=== PATIENT | female | born 1955 | race Caucasian/White ===

== ENCOUNTER 2017-08-12 10:45 | Outpatient (CLI) | payer OTHER | END 2017-08-12 10:46 | LOC: LAB.WCP 10:45 | PROVIDERS: ATTEND Family Medicine | DX: L30.1 Dyshidrosis [pompholyx] (principal) | CPT/HCPCS: 87070; 87205 ==

== ENCOUNTER 2018-07-16 17:30 | Outpatient (CLI) | payer OTHER | END 2018-07-16 23:59 | LOC: LAB.R 17:30 | PROVIDERS: ATTEND Family Medicine | DX: B35.1 Tinea unguium (principal) | CPT/HCPCS: 81599; 87101; 87220 ==

== ENCOUNTER 2019-05-26 11:10 | Outpatient (CLI) | payer OTHER | END 2019-05-26 23:59 | disposition home or self-care (01) | LOC: LAB.WCP 11:10 | PROVIDERS: ATTEND Family Medicine | DX: L30.1 Dyshidrosis [pompholyx] (principal) | CPT/HCPCS: 87070; 87181; 87205 ==

== ENCOUNTER 2019-08-24 08:00 | Outpatient (CLI) | payer OTHER ==
[2019-08-24 18:38] LABS: BASOPHILS # (AUTO) 0.1 10^3/uL (0.0-0.1); BASOPHILS % (AUTO) 0.9 %; EOSINOPHILS # (AUTO) 0.2 10^3/uL (0.0-0.7); EOSINOPHILS % (AUTO) 2.1 %; HGB - HEMOGLOBIN 12.8 g/dL (12.0-16.0); LYMPHOCYTES # (AUTO) 2.6 10^3/uL (1.5-3.5); LYMPHOCYTES % (AUTO) 27.1 %; MEAN CORPUSCULAR HEMOGLOBIN 29.5 pg (27.0-31.0); MEAN CORPUSCULAR HGB CONC 30.5 g/dL (32.0-36.0); MEAN CORPUSCULAR VOLUME 96.8 fL (81.0-99.0); MEAN PLATELET VOLUME 10.6 fL (7.9-10.8); MONOCYTES # (AUTO) 0.8 10^3/uL (0.0-1.0); MONOCYTES % (AUTO) 8.1 %; NEUTROPHILS # (AUTO) 5.8 10^3/uL (1.5-6.6); PLT - PLATELET COUNT 336 10^3/uL (130-450); RED BLOOD COUNT 4.34 10^6/uL (4.20-5.40); RED CELL DISTRIBUTION WIDTH 15.4 % (12.0-15.0); WHITE BLOOD COUNT 9.6 x10^3/uL (4.8-10.8)
[2019-08-24 18:53] LABS: HB2 TOTAL 13.1 g/dL; HEMOGLOBIN A1C 1.06 g/dL; HEMOGLOBIN A1C % 9.6 % (4.6-6.2)
[2019-08-24 18:59] LABS: ALBUMIN 3.8 g/dL (3.2-5.5); ALBUMIN/GLOBULIN RATIO 1.1 (1.0-2.2); ALKALINE PHOSPHATASE 51 IU/L (42-121); ALT ALANINE AMINOTRANSFERASE 39 IU/L (10-60); AST ASPARTATE AMINOTRANSFERASE 34 IU/L (10-42); BILIRUBIN,TOTAL 1.2 mg/dL (0.2-1.0); BUN - BLOOD UREA NITROGEN 21 mg/dL (6-20); CALCIUM 9.7 mg/dL (8.5-10.3); CARBON DIOXIDE - CO2 29 mmol/L (21-32); CHLORIDE 99 mmol/L (101-111); CHOL/HDL RATIO 8.1 (<4.4); CHOLESTEROL 268 mg/dL; CREATININE 1.6 mg/dL (0.4-1.0); GFR - MDRD 33 (>89); GLUCOSE 118 mg/dL (70-100); HDL CHOLESTEROL 33 mg/dL; SODIUM 138 mmol/L (135-145); TOTAL PROTEIN 7.4 g/dL (6.7-8.2)
[2019-08-24 19:29] LABS: LDL CHOLESTEROL,DIRECT 164 mg/dL
== END 2019-08-24 23:59 | disposition home or self-care (01) ==
LOC: LAB.WCP 08:00
PROVIDERS: ATTEND Physician Assistant Medical
DX: I10 Essential (primary) hypertension (principal); E78.2 Mixed hyperlipidemia; E11.9 Type 2 diabetes mellitus without complications
CPT/HCPCS: 36415; 80053; 80061; 83036; 83721; 85025

== ENCOUNTER 2019-11-22 10:57 | Outpatient (CLI) | payer OTHER ==
[2019-11-22 18:40] LABS: ALBUMIN/GLOBULIN RATIO 1.1 (1.0-2.2); BILIRUBIN,TOTAL 0.8 mg/dL (0.2-1.0); CALCIUM 9.6 mg/dL (8.5-10.3); CREATININE 1.2 mg/dL (0.4-1.0); TOTAL PROTEIN 7.7 g/dL (6.7-8.2)
[2019-11-22 18:58] LABS: HB2 TOTAL 14.1 g/dL; HEMOGLOBIN A1C 0.98 g/dL; HEMOGLOBIN A1C % 8.5 % (4.6-6.2)
== END 2019-11-22 23:59 | disposition home or self-care (01) ==
LOC: LAB.WCP 10:57
PROVIDERS: ATTEND Physician Assistant Medical
DX: E11.9 Type 2 diabetes mellitus without complications (principal)
CPT/HCPCS: 36415; 80053; 83036

== ENCOUNTER 2020-07-12 07:00 | Outpatient (CLI) | payer OTHER | END 2020-07-12 23:59 | disposition home or self-care (01) | LOC: LAB.R 07:00 | PROVIDERS: ATTEND Physician Assistant Medical | DX: L03.319 Cellulitis of trunk, unspecified (principal) | CPT/HCPCS: 87070; 87181; 87205 ==

== ENCOUNTER 2020-07-28 09:09 | Outpatient (CLI) | payer OTHER | END 2020-07-28 09:10 | disposition home or self-care (01) | LOC: RT 09:09 | PROVIDERS: ATTEND Physician Assistant Medical | DX: J44.9 Chronic obstructive pulmonary disease, unspecified (principal) | CPT/HCPCS: 94060; 94729 ==

== ENCOUNTER 2020-09-18 08:00 | Outpatient (CLI) | payer OTHER ==
[2020-09-18 12:08] LABS: HGB - HEMOGLOBIN 13.6 g/dL (12.0-16.0); MEAN CORPUSCULAR HEMOGLOBIN 28.9 pg (27.0-31.0); MEAN CORPUSCULAR HGB CONC 30.9 g/dL (32.0-36.0); MEAN CORPUSCULAR VOLUME 93.6 fL (81.0-99.0); MEAN PLATELET VOLUME 10.7 fL (7.9-10.8); RED BLOOD COUNT 4.7 10^6/uL (4.20-5.40); RED CELL DISTRIBUTION WIDTH 14.7 % (12.0-15.0); WHITE BLOOD COUNT 6.1 x10^3/uL (4.8-10.8)
[2020-09-18 13:31] LABS: ALBUMIN 3.8 g/dL (3.2-5.5); ALBUMIN/GLOBULIN RATIO 1.1 (1.0-2.2); ALKALINE PHOSPHATASE 54 IU/L (42-121); ALT ALANINE AMINOTRANSFERASE 29 IU/L (10-60); AST ASPARTATE AMINOTRANSFERASE 29 IU/L (10-42); BILIRUBIN,TOTAL 0.9 mg/dL (0.2-1.0); BUN - BLOOD UREA NITROGEN 17 mg/dL (6-20); CALCIUM 9.8 mg/dL (8.5-10.3); CARBON DIOXIDE - CO2 28 mmol/L (21-32); CHLORIDE 101 mmol/L (101-111); CHOLESTEROL 293 mg/dL; CREATININE 1.3 mg/dL (0.4-1.0); GLUCOSE 122 mg/dL (70-100); HDL CHOLESTEROL 42 mg/dL; SODIUM 139 mmol/L (135-145); TOTAL PROTEIN 7.4 g/dL (6.7-8.2)
[2020-09-18 13:50] LABS: PROTEIN/CREATININE RATIO,URINE 1.1 (<=0.2)
[2020-09-18 13:58] LABS: LDL CHOLESTEROL,DIRECT 165 mg/dL; LDLD/HDL RATIO 3.9 (<4.4)
[2020-09-18 14:09] LABS: HEMOGLOBIN A1c% 6.6 % (4.27-6.07)
== END 2020-09-18 23:59 | disposition home or self-care (01) ==
LOC: LAB.WCP 08:00
PROVIDERS: ATTEND Physician Assistant Medical
DX: D70.9 Neutropenia, unspecified (principal); E11.9 Type 2 diabetes mellitus without complications; D63.1 Anemia in chronic kidney disease; R80.9 Proteinuria, unspecified
CPT/HCPCS: 36415; 80053; 80061; 82570; 83036; 83721; 84156; 85027

== ENCOUNTER 2020-10-13 09:12 | Outpatient (CLI) | payer OTHER ==
--- NOTE | 2020-10-13 16:05 | Ultrasound Report ---
PROCEDURE: Retroperitoneal INDICATIONS: KIDNEY DYSFUNCTION TECHNIQUE: Real-time scanning was performed of the retroperitoneal organs, with image documentation. COMPARISON: None. FINDINGS: Kidneys: Kidneys are atrophic, right greater than left. Right kidney measures 6.6 cm long; left kidn ey measures 10.0 cm long. Right renal cortical thickness is 0.6 cm; left renal cortical thickness is 1.3 cm. No solid masses, hydronephrosis, or nephrolithiasis. Bladder: Prevoid volume 47 cc. Postvoid residual 0 cc. Ureteral jets are identified bilaterally. Ther e is an overall appearance of bladder wall thickening. IMPRESSION: 1. Bilateral renal atrophy, right greater than left. 2. No obstruction. 3. Thickened appearance of the bladder wall, which can be seen with incomplete distention. Recommend correlation to cystitis as a can have a similar imaging appearance. Reviewed by: Krysten Vargas MD on 10/13/2020 4:03 PM PST Approved by: Krysten Vargas MD on 10/13/2020 4:03 PM PST Station ID: [id number]
== END 2020-10-13 09:13 | disposition home or self-care (01) ==
LOC: DI 09:12
PROVIDERS: ATTEND Internal Medicine Nephrology
DX: N26.1 Atrophy of kidney (terminal) (principal); R93.41 Abnormal radiologic findings on diagnostic imaging of renal pelvis, ureter, or bladder

== ENCOUNTER 2021-02-08 09:17 | Outpatient (CLI) | payer OTHER ==
--- NOTE | 2021-02-08 12:52 | Ultrasound Report ---
PROCEDURE: Ankle Brachial Index INDICATIONS: PERIPHERAL VASCULAR DISEASE, POST MENOPAUSAL TECHNIQUE: Ankle-brachial indices were obtained bilaterally and recorded. COMPARISONS: None. FINDINGS: Right ankle brachial index (KECIA): 0.63 Left ankle brachial index (KECIA): 0.48 Healing potential: Ankle pressures >55 mm Hg in non-diabetics and >80 mm Hg in diabetics are likely to achieve primary h ealing of ischemic foot ulcers. Toe pressures >30 mm Hg are likely to achieve primary healing of ischemic foot ulcers, toe or transme tatarsal amputations. IMPRESSION: Significantly diminished bilateral ankle brachial indices. Reviewed by: Nabeel Amaya MD on 02/08/2021 12:51 PM PDT Approved by: Nabeel Amaya MD on 02/08/2021 12:51 PM PDT Station ID: [id number]
--- NOTE | 2021-02-08 16:48 | DEXA Report ---
PROCEDURE: Dexa Spine and/or Hip INDICATIONS: PERIPHERAL VASCULAR DISEASE, POST MENOPAUSAL TECHNIQUE: Dual energy x-ray absorptiometry (DXA) was performed on a ESBATech System. Regions measur ed are the AP Spine, femoral neck, and if needed forearm. COMPARISON: None. FINDINGS: Lumbar Spine: Bone Mineral Density 1.351 g/cm/cm,T score 1.4, normal Left Hip: Bone Mineral Density 1.061 g/cm/cm,T score 0.4, normal Left Femoral Neck: Bone Mineral Density 0.794 g/cm/cm, T score -1.8, osteopenia (T score greater or equal to -1.0: NORMAL) (T score from -1.1 to -2.4: OSTEOPENIA) (T score less than or equal to -2.5 to: OSTEOPOROSIS) Impression: Normal bone mineral density at the lumbosacral spine and left hip overall but there is mi ld osteopenia at the left femoral neck. Patients with diagnosis of osteoporosis or osteopenia should have regular bone mineral density assess ment. For those eligible for Medicare, routine testing is allowed once every 2 years. Testing frequ ency can be increased for patients who have rapidly progressing disease or for those who are receivin g medical therapy to restore bone mass. Reviewed by: Torres Mack MD on 02/08/2021 4:47 PM PDT Approved by: Torres Mack MD on 02/08/2021 4:47 PM PDT Station ID: [id number]
== END 2021-02-08 09:18 | disposition home or self-care (01) ==
LOC: DI 09:17
PROVIDERS: ATTEND Physician Assistant Medical
DX: I73.9 Peripheral vascular disease, unspecified (principal); M85.88 Other specified disorders of bone density and structure, other site; Z78.0 Asymptomatic menopausal state
CPT/HCPCS: 93922

== ENCOUNTER 2021-06-07 07:43 | Outpatient (CLI) | payer OTHER ==
[2021-06-07 12:40] LABS: ALBUMIN 3.8 g/dL (3.2-5.5); ALKALINE PHOSPHATASE 64 IU/L (42-121); ALT ALANINE AMINOTRANSFERASE 39 IU/L (10-60); AST ASPARTATE AMINOTRANSFERASE 29 IU/L (10-42); BILIRUBIN,TOTAL 0.7 mg/dL (0.2-1.0); BUN - BLOOD UREA NITROGEN 24 mg/dL (6-20); CALCIUM 9.9 mg/dL (8.5-10.3); CARBON DIOXIDE - CO2 31 mmol/L (21-32); CHLORIDE 99 mmol/L (101-111); CHOL/HDL RATIO 7.3 (<4.4); CHOLESTEROL 254 mg/dL; CREATININE 1.4 mg/dL (0.4-1.0); GFR - MDRD 38 (>89); GLUCOSE 239 mg/dL (70-100); HDL CHOLESTEROL 35 mg/dL; LDL CHOLESTEROL,CALCULATED 142 mg/dL; LDL/HDL RATIO 4.1 (<4.4); POTASSIUM 4.5 mmol/L (3.5-5.0); SODIUM 141 mmol/L (135-145); TOTAL PROTEIN 7.6 g/dL (6.7-8.2); TRIGLYCERIDES 385 mg/dL; VLDL CHOLESTEROL 77 mg/dL
[2021-06-07 12:41] LABS: THYROID STIMULATING HORMONE 3.65 uIU/mL (0.34-5.60)
[2021-06-07 13:24] LABS: ESTIMATED AVERAGE GLUCOSE 180 mg/dL (70-100); HEMOGLOBIN A1c% 7.9 % (4.27-6.07)
== END 2021-06-07 23:59 | disposition home or self-care (01) ==
LOC: LAB.WCP 07:43
PROVIDERS: ATTEND Physician Assistant Medical
DX: E11.9 Type 2 diabetes mellitus without complications (principal)
CPT/HCPCS: 36415; 80053; 80061; 83036; 83721; 84443

== ENCOUNTER 2021-09-08 10:29 | Outpatient (CLI) | payer OTHER | END 2021-09-08 10:30 | disposition critical access hospital (66) | LOC: EMS 10:29 | DX: R51.9 Headache, unspecified (principal); H53.8 Other visual disturbances | CPT/HCPCS: A0425; A0427 ==

== ENCOUNTER 2021-09-08 10:38 | Inpatient (IN) | payer OTHER ==
[2021-09-08] MEDS ORDERED: SODIUM CHLORIDE 0.9% 1,000 ML IV STA (10:59)
--- NOTE | 2021-09-08 11:01 | ED Physician Documentation ---
PD HPI FOCAL NEURO - Stated complaint Stated Complaint: VISION CHANGE/CHARLES - Chief complaint Chief Complaint: Neuro - History obtained from History obtained from: Patient - History of Present Illness Timing - onset: Enter time (1600), Yesterday Timing - duration: Days (1) Timing - details: Gradual onset, Still present Severity of deficit: Moderate Weakness: No: Face, Arm, Hand, Leg, Foot, Right, Left, Other Numbness: No: Face, Arm, Hand, Leg, Foot, Right, Left, Other Associated symptoms: Headache Contributing factors: positive: Other (diabetes) Baseline status: positive: A&OX3, ambulatory, indep Similar symptoms before: Has not had sx before Recently seen: Not recently seen - Additional information Additional information: 66-year-old diabetic female with a history of hypertension was in her home yesterday when she began to experience some visual changes to the right thigh. She has a visual deficit of the peripheral vision on the right eye especially to the lateral aspect. She has not had the symptoms previously. She checked her blood pressure and it was elevated with a systolic up to 199. She has a bit of a headache associated with this. 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 Today she is taken some aspirin and she has called 911. Review of Systems Constitutional: denies: Fever Eyes: reports: Loss of vision, Decreased vision. denies: Photophobia, Discharge, Irritation Ears: denies: Ear pain Nose: denies: Rhinorrhea / runny nose, Congestion Throat: denies: Sore throat Cardiac: denies: Chest pain / pressure, Palpitations Respiratory: denies: Dyspnea, Cough GI: denies: Abdominal Pain, Abdominal Swelling, Vomiting : denies: Dysuria, Frequency Skin: denies: Rash Musculoskeletal: denies: Neck pain, Back pain, Extremity pain Neurologic: reports: Headache. denies: Generalized weakness, Focal weakness, Numbness, Difficulty speaking, Near syncope, Syncope, Seizure, Confused, Altered mental status, Head injury, LOC PD PAST MEDICAL HISTORY - Past Medical History Cardiovascular: Hypertension, High cholesterol Respiratory: COPD, Shortness of breath Endocrine/Autoimmune: Type 2 diabetes Derm: Other - Past Surgical History General: Other Cardiovascular: Fempop bypass - Present Medications Home Medications: Ambulatory Orders Medication Instructions Recorded Confirmed Losartan [Cozaar] 100 mg PO DAILY 04/19/14 09/08/21 Felodipine [Felodipine ER] 10 mg PO DAILY 10/19/19 09/08/21 Fexofenadine HCl [Jessica Allergy] 180 mg PO DAILY 10/19/19 09/08/21 Insulin Lispro [Humalog Kwikpen 62 - 66 unit SUBQ TID 10/19/19 09/08/21 U-100] Insulin NPH Human Isophane 34 - 42 unit SUBQ BID 10/19/19 09/08/21 [Humulin N] Atorvastatin [Lipitor] 10 mg PO QPM 09/08/21 09/08/21 Hydralazine HCl 50 mg PO QID 09/08/21 09/08/21 carvediloL [Coreg] 12.5 mg PO BID 09/08/21 09/08/21 hydroCHLOROthiazide [Hydrodiuril] 12.5 mg PO DAILY 09/08/21 09/08/21 - Allergies Allergies/Adverse Reactions: Allergies Allergy/AdvReac Type Severity Reaction Status Date / Time lisinopril Allergy Unknown Verified 09/08/21 10:51 - Social History Smoking Status: Former smoker PD ED PE NORMAL - Vitals Vital signs reviewed: Yes (hypertensive systolic ) - General General: Alert and oriented X 3, No acute distress, Well developed/nourished - HEENT HEENT: Atraumatic, PERRL, EOMI - Neck Neck: Supple, no meningeal sign, No bony TTP - Cardiac Cardiac: RRR, No murmur - Respiratory Respiratory: No respiratory distress, Clear bilaterally - Abdomen Abdomen: Normal bowel sounds, Soft, Non tender, Non distended, No organomegaly - Back Back: No CVA TTP, No spinal TTP - Derm Derm: Normal color, Warm and dry, No rash - Extremities Extremities: No deformity, No edema - Neuro Neuro: Alert and oriented X 3, No motor deficit, No sensory deficit, Normal spee ch, Other (visual field on right side has peripheral deficit. ) Eye Opening: Spontaneous Motor: Obeys Commands Verbal: Oriented GCS Score: 15 - Psych Psych: Normal mood, Normal affect NIHSS - Time Time: 19:45 - Level of Consciousness Level of consciousness: (0) Alert, Keenly responsive LOC Questions: (0) Answers both Q's correct LOC Commands: (0) Performs both correctly - Gaze Best Gaze: (0) Normal - Visual Visual: (1) Partial hemianopia - Facial Palsy Facial Palsy: (0) Normal, symmetrical movement - Motor Arms (both separate) Motor Arm (right): (0) No drift Motor Arm (left): (0) No drift - Motor Legs (both separate) Motor Leg (right): (0) No drift Motor Leg (left): (0) No drift - Limb Ataxia Limb Ataxia: (0) Absent - Sensory Sensory: (0) Normal - Best Language Best Language: (0) No aphasia - Dysarthria Dysarthria: (0) Normal - Extinction and Inattention (formally neg Extinction and inattention: (0) No abnormality - Total Score/Results Total Score/Result: 1 Results - Vitals Vitals: Vital Signs - 24 hr 09/08/21 09/08/21 09/08/21 10:40 10:51 11:22 Temperature 36.5 C Heart Rate 86 85 86 Respiratory 19 14 19 Rate Blood Pressure 172/67 H 172/67 H 196/65 H O2 Saturation 95 94 97 09/08/21 09/08/21 09/08/21 11:30 12:00 12:30 Temperature Heart Rate 85 83 85 Respiratory 16 16 16 Rate Blood Pressure 196/65 H 150/125 H O2 Saturation 95 95 95 09/08/21 13:38 Temperature Heart Rate 91 Respiratory 17 Rate Blood Pressure 183/81 H O2 Saturation 96 Oxygen O2 Source Room air - EKG (time done) 1102 Rate: Rate (enter#) (80) Ischemia: Q waves (inferior ) Compare to prior EKG: Old EKG unavailable Computer interpretation: Agree with computer - Labs Labs: Laboratory Tests 09/08/21 09/08/21 09/08/21 11:29 11:29 11:29 WBC 6.5 RBC 4.96 Hgb 14.7 Hct 45.8 MCV 92.3 MCH 29.6 MCHC 32.1 RDW 13.0 Plt Count 259 MPV 10.2 Neut # (Auto) 4.3 Lymph # (Auto) 1.4 L [place] # (Auto) 0.5 Eos # (Auto) 0.2 Baso # (Auto) 0.1 Absolute Nucleated RBC 0.00 Nucleated RBC % 0.0 Sodium 137 Potassium 4.1 Chloride 97 L Carbon Dioxide 30 Anion Gap 10.0 BUN 21 H Creatinine 1.4 H Estimated GFR (MDRD) 38 L Glucose 110 H Estimat Average Glucose Hemoglobin A1c % Lactic Acid 1.5 Calcium 9.2 Total Bilirubin 1.0 AST 27 ALT 32 Alkaline Phosphatase 52 Troponin I High Sens Total Protein 7.6 Albumin 3.8 Globulin 3.8 Albumin/Globulin Ratio 1.0 Triglycerides Cholesterol LDL Cholesterol, Calc VLDL Cholesterol HDL Cholesterol LDL/HDL Ratio Cholesterol/HDL Ratio Lipase 41 Urine Color Urine Clarity Urine pH Ur Specific [place] Urine Protein Urine Glucose (UA) Urine Ketones Urine Occult Blood Urine Nitrite Urine Bilirubin Urine Urobilinogen Ur Leukocyte Esterase Urine RBC Urine WBC Ur Squamous Epith Cells Urine Bacteria Ur Microscopic Review Urine Culture Comments 09/08/21 09/08/21 09/08/21 11:29 11:29 11:29 WBC RBC Hgb Hct MCV MCH MCHC RDW Plt Count MPV Neut # (Auto) Lymph # (Auto) [place] # (Auto) Eos # (Auto) Baso # (Auto) Absolute Nucleated RBC Nucleated RBC % Sodium Potassium Chloride Carbon Dioxide Anion Gap BUN Creatinine Estimated GFR (MDRD) Glucose Estimat Average Glucose 183 H Hemoglobin A1c % 8.0 H Lactic Acid Calcium Total Bilirubin AST ALT Alkaline Phosphatase Troponin I High Sens 14.5 Total Protein Albumin Globulin Albumin/Globulin Ratio Triglycerides 326 H Cholesterol 243 H LDL Cholesterol, Calc 147 H VLDL Cholesterol 65 HDL Cholesterol 31 L LDL/HDL Ratio 4.7 Cholesterol/HDL Ratio 7.8 Lipase Urine Color Urine Clarity Urine pH Ur Specific [place] Urine Protein Urine Glucose (UA) Urine Ketones Urine Occult Blood Urine Nitrite Urine Bilirubin Urine Urobilinogen Ur Leukocyte Esterase Urine RBC Urine WBC Ur Squamous Epith Cells Urine Bacteria Ur Microscopic Review Urine Culture Comments 09/08/21 11:40 WBC RBC Hgb Hct MCV MCH MCHC RDW Plt Count MPV Neut # (Auto) Lymph # (Auto) [place] # (Auto) Eos # (Auto) Baso # (Auto) Absolute Nucleated RBC Nucleated RBC % Sodium Potassium Chloride Carbon Dioxide Anion Gap BUN Creatinine Estimated GFR (MDRD) Glucose Estimat Average Glucose Hemoglobin A1c % Lactic Acid Calcium Total Bilirubin AST ALT Alkaline Phosphatase Troponin I High Sens Total Protein Albumin Globulin Albumin/Globulin Ratio Triglycerides Cholesterol LDL Cholesterol, Calc VLDL Cholesterol HDL Cholesterol LDL/HDL Ratio Cholesterol/HDL Ratio Lipase Urine Color YELLOW Urine Clarity CLEAR Urine pH 7.0 Ur Specific [place] 1.020 Urine Protein 100 H Urine Glucose (UA) NEGATIVE Urine Ketones NEGATIVE Urine Occult Blood TRACE-INTA Urine Nitrite NEGATIVE Urine Bilirubin NEGATIVE Urine Urobilinogen 0.2 (NORMAL) Ur Leukocyte Esterase NEGATIVE Urine RBC 0-5 Urine WBC 0-3 Ur Squamous Epith Cells RARE Squamous Urine Bacteria Few Ur Microscopic Review INDICATED Urine Culture Comments NOT INDICATED - Rads (name of study) CT head Radiology: Prelim report reviewed (Impression: Left occipital lobe hypodensity measuring 4.8 x 2.1 x 2.8 cm with no associated mass-effect or midline shift. Differential diagnosis includes an infiltrative mass versus subacute infarct in the STENCILING MACHINE TENDER distribution. Recommend CT of the head with contrast and CT angio of the head and neck), EMP read indepedently, See rad report CTA head Radiology: Prelim report reviewed (Impression: 4.8 x 2.1 x 2.6 left occipital lobe infarction. Focal calcification and stenosis of the prethree segment of the left STENCILING MACHINE TENDER likely a cause of left STENCILING MACHINE TENDER distribution infarct. 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 ), Final report received (Calcifications in the intracranial internal carotid arteries with no significant stenosis, otherwise normal anterior circulation), EMP read indepedently, See rad report CTA neck Radiology: Prelim report reviewed (Impression: 1. Focal calcification and stenosis of the P3 segment of the left STENCILING MACHINE TENDER, likely the cause of left STENCILING MACHINE TENDER distribution infarct. Post endarterectomy changes of the right carotid artery with no stenosis. severe atherosclerotic calcifications of the left carotid bulb causing 70% stenosis and th) Procedures - IVC sono (time) 1050 Bedside IVC sono: IVC measures (cm) (0.68), Dehydration (est 2-3 liter deficit) PD MEDICAL DECISION MAKING - ED course Complexity details: reviewed old records, reviewed results, re-evaluated patient, considered differential, d/w patient, d/w sales operations consultant ([facility] neurology at [facility] recommends admission here with plavix load and asa. Vertebral artery stenosis is not fixable will need medical management. No acute intervention to left carotid. Recomends f/u for intervention. ) ED course: 66-year-old female diabetic has had a right visual field cut and she has a left STENCILING MACHINE TENDER stroke on her CT scan that looks to be completed. She has prior history of vascular disease she has had a right carotid done about 2 years ago she has left carotid disease that does make grade for intervention. The neurologist recommends consultation at a later date for intervention with the left carotid artery as it is not likely involved in today's event. No intervention for the vertebral arteries is available. She will need medical management. Today she is found to be significantly dehydrated on interrogation the inferior vena cava she is administered saline. Dr Irwin is consulted in the case and graciously agrees to care for the patient in the hospital. Departure - Departure Disposition: 68 [facility] DC/Xfer Clinical Impression: Dehydration determined by examination Cerebrovascular accident (CVA) Qualifiers: CVA mechanism: stenosis Precerebral and cerebral artery: posterior cerebral artery Laterality of affected vessel: right Qualified Code(s): I63.531 - Cerebral infarction due to unspecified occlusion or stenosis of right posterior cerebral artery Condition: Stable Discharge Date/Time: 09/08/21 14:44
--- NOTE | 2021-09-08 11:32 | CT Report ---
PROCEDURE: Head W/O Stroke Protocol INDICATIONS: peripheral vision loss to right eye TECHNIQUE: Noncontrast 4.5 mm thick angled axial sections acquired from the foramen magnum to the vertex, with c oronal reformats. For radiation dose reduction, the following was used: automated exposure control, adjustment of mA and/or kV according to patient size. COMPARISON: FINDINGS: Image quality: Excellent. CSF spaces: Basal cisterns are patent. No extra-axial fluid collections. Ventricles are normal in size and shape. Brain: No midline shift. No intracranial masses or hemorrhage. There is a well-circumscribed hypod ensity in the left occipital lobe measuring 4.8 x 2.1 x 2.6 cm. There is no mass effect or midline sh ift. Skull and face: Calvarium and visualized facial bones are intact, without suspicious lesions. Sinuses: Visualized sinuses and mastoids are clear. IMPRESSION: Left occipital lobe hypodensity measuring 4.8 x 2.1 x 2.8 cm with no associated mass eff ect or midline shift. Differential diagnosis includes an infiltrative mass versus subacute infarct in a EKG MONITOR distribution. Recommend CT of the head with contrast and CT angiogram of the head and neck. Fi ndings were discussed with Dr. Rosales at 10:28 AM on 09/08/2021. This study fulfills neurological imaging criteria for inclusion or exclusion of acute stroke therapie s based on available published neurological imaging guidelines. Reviewed by: Zander Quick on 09/08/2021 10:31 AM BAL Approved by: Zander Quick on 09/08/2021 10:31 AM [facility] Station ID: [id number]
[2021-09-08 11:35] LABS: BASOPHILS # (AUTO) 0.1 10^3/uL (0.0-0.1); BASOPHILS % (AUTO) 0.8 %; EOSINOPHILS # (AUTO) 0.2 10^3/uL (0.0-0.7); EOSINOPHILS % (AUTO) 2.8 %; HCT - HEMATOCRIT 45.8 % (37.0-47.0); HGB - HEMOGLOBIN 14.7 g/dL (12.0-16.0); LYMPHOCYTES # (AUTO) 1.4 10^3/uL (1.5-3.5); LYMPHOCYTES % (AUTO) 22.1 %; MEAN CORPUSCULAR HEMOGLOBIN 29.6 pg (27.0-31.0); MEAN CORPUSCULAR HGB CONC 32.1 g/dL (32.0-36.0); MEAN CORPUSCULAR VOLUME 92.3 fL (81.0-99.0); MEAN PLATELET VOLUME 10.2 fL (7.9-10.8); MONOCYTES # (AUTO) 0.5 10^3/uL (0.0-1.0); MONOCYTES % (AUTO) 7.8 %; NEUTROPHILS # (AUTO) 4.3 10^3/uL (1.5-6.6); NEUTROPHILS % (AUTO) 66.3 %; PLT - PLATELET COUNT 259 10^3/uL (130-450); RED BLOOD COUNT 4.96 10^6/uL (4.20-5.40); WHITE BLOOD COUNT 6.5 x10^3/uL (4.8-10.8)
[2021-09-08 11:50] LABS: ALBUMIN 3.8 g/dL (3.2-5.5); CALCIUM 9.2 mg/dL (8.5-10.3); CREATININE 1.4 mg/dL (0.4-1.0); POTASSIUM 4.1 mmol/L (3.5-5.0); TOTAL PROTEIN 7.6 g/dL (6.7-8.2)
[2021-09-08] MEDS ORDERED: IOPAMIDOL-300 100 ML VIAL ONE (11:58)
[2021-09-08 12:12] LABS: BILIRUBIN,URINE NEGATIVE (NEGATIVE); GLUCOSE, URINE (UA) NEGATIVE (NEGATIVE); KETONES,URINE (UA) NEGATIVE (NEGATIVE); LEUKOCYTE ESTERASE, URINE NEGATIVE (NEGATIVE); NITRITE,URINE NEGATIVE (NEGATIVE); OCCULT BLOOD,URINE TRACE-INTA (NEGATIVE); PROTEIN,URINE 100 mg/dL (NEGATIVE); UROBILINOGEN,URINE 0.2 (NORMAL) E.U./dL (NORMAL)
[2021-09-08 12:14] LABS: CLARITY,URINE CLEAR (CLEAR)
[2021-09-08 12:23] LABS: BACTERIA,URINE Few /HPF (None Seen); RBC,URINE 0-5 /HPF (0-5); SQUAMOUS EPITHELIAL CELL,UR RARE Squamous (<= Few); WBC,URINE 0-3 /HPF (0-5)
[2021-09-08] MEDS ORDERED: IOPAMIDOL-300 100 ML VIAL IVP ONE (12:23)
--- NOTE | 2021-09-08 12:54 | CT Report ---
PROCEDURE: ANGIO NECK W INDICATIONS: right peripheral visual field loss CONTRAST: IV CONTRAST: Isovue 300 ml: 80 PO CONTRAST: *NO PO CONTRAST TECHNIQUE: After the administration of intravenous contrast, 1.5 mm axial sections acquired from the aortic arch to the [place] of [place]. Coronal 3-D maximum intensity projection (MIP) and/or volume rendering ref ormats were then performed. For radiation dose reduction, the following was used: automated exposur e control, adjustment of mA and/or kV according to patient size. COMPARISON: None FINDINGS: Image quality: Excellent. Carotid system: The great vessels demonstrate a conventional anatomy as they arise from the aortic a [facility]. Postoperative changes of right carotid endarterectomy with no stenosis. The left proximal ICA a t the bulb has calcified plaque causing 70% stenosis. The mid left ICA also has atherosclerotic calci fications causing 70% stenosis. The common carotid arteries demonstrate normal calibers and courses. The bifurcation regions appear normal bilaterally. The internal carotid arteries demonstrate normal caliber and course. Posterior circulation: The origin of the right vertebral artery is heavily calcified causing signific ant stenosis. The remaining vertebral artery in the neck is patent. The right vertebral artery is dom inant. The left vertebral artery is nondominant and miniscule and is not visualized until the upper c ervical spine where there is normal flow which does not reach the basilar artery confluence. There is a focal calcification and stenosis in the P3 segment of the left BREAKER TENDER, likely the cause of left BREAKER TENDER d istribution infarct. Soft tissues: Visualized neck soft tissues demonstrate no suspicious abnormalities. The thyroid is normal in size and there are no incidental findings. The left maxillary sinus has mucosal retention c ysts. Bones: No suspicious bony lesions. Visualized cervical spine appears normally aligned. IMPRESSION: 1. Focal calcification and stenosis in the P3 segment of the left BREAKER TENDER, likely the cause of left BREAKER TENDER d istribution infarct. 2. Postendarterectomy changes of the right carotid artery with no stenosis. 3. Severe atherosclerotic calcifications of the left carotid bulb causing 70% stenosis and the mid le ft ICA causing 70% stenosis. 4. Severe stenosis at the origin of the right vertebral artery. 5. Dominant right vertebral artery with a miniscule left vertebral artery which does not provide sign ificant flow to the basilar artery. Reviewed by: Zander Quick on 09/08/2021 11:52 AM [facility] Approved by: Zander Quick on 09/08/2021 11:52 AM [facility] Station ID: [id number]
[2021-09-08] MEDS ORDERED: CLOPIDOGREL 300 MG TABLET PO STA (12:57)
--- NOTE | 2021-09-08 13:01 | CT Report ---
PROCEDURE: ANGIO HEAD W/WO INDICATIONS: R peripheral visual field loss CONTRAST: IV CONTRAST: Isovue 300 ml: 80 PO CONTRAST: *NO PO CONTRAST TECHNIQUE: Precontrast 4.5 mm thick angled axial sections acquired from the foramen magnum to the vertex. Afte r the administration of intravenous contrast, 1 mm thick sections acquired through the [place] of [place] is. Postcontrast 4.5 mm thick sections then re-acquired from the foramen magnum to the vertex. 3-di mensional rdkrozj-wrbtcjxni-qbtcaysckr (MIP) and/or volume rendering reformats were acquired of the c entral intracranial vasculature. For radiation dose reduction, the following was used: automated ex posure control, adjustment of mA and/or kV according to patient size. COMPARISON: CT head today FINDINGS: Image quality: Excellent. Anterior circulation: The intracranial internal carotid arteries have atherosclerotic calcifications with no significant stenosis. The flow within the paired anterior cerebral arteries is normal and sym metric. The flow within the middle cerebral arteries is normal and symmetric. The anterior communic ating artery is seen. No aneurysms are seen. Posterior circulation: The right vertebral artery is dominant. The left vertebral artery is nondomin ant and miniscule and is not visualized until the upper cervical spine where there is normal flow whi ch does not reach the basilar artery confluence. There is a focal calcification and stenosis in the P 3 segment of the left CONSTRUCTION IRONWORKER, likely the cause of left CONSTRUCTION IRONWORKER distribution infarct. CSF spaces: Ventricles are normal in size and shape. Basal cisterns are patent. No extra-axial flu id collections. Brain: The 4.8 x 2.1 x 2.6 cm left occipital lobe hypodensity seen on noncontrast CT demonstrates no postcontrast enhancement. There is no associated mass effect. No midline shift. No intracranial ble eds or masses. Kam-white matter interface appears intact. Skull and face: Calvarium and facial bones appear intact, without suspicious lesions. Sinuses: Visualized sinuses and mastoids are clear. IMPRESSION: 1. 4.8 x 2.1 x 2.6 cm left occipital lobe infarction. 2. Focal calcification and stenosis in the P3 segment of the left CONSTRUCTION IRONWORKER likely the cause of left CONSTRUCTION IRONWORKER di stribution infarct. 3. No significant flow in the left vertebral artery likely due to congenital dominance of the right v ertebral artery. 4. Calcifications in the intracranial internal carotid arteries with no significant stenosis, otherwi se normal anterior circulation. Reviewed by: Zander Quick on 09/08/2021 11:59 AM BAL Approved by: Zander Quick on 09/08/2021 11:59 AM IN Station ID: [id number]
[2021-09-08] MEDS ORDERED: SODIUM CHLORIDE FLUSH 0.9% 10 ML SYRINGE IVP PRN (13:50)
[2021-09-08] MEDS ORDERED: ONDANSETRON ODT 4 MG TABLET TL PRN (13:52)
--- NOTE | 2021-09-08 13:56 | HISTORY & PHYSICAL EXAMINATION ---
Chief Complaint - Chief Complaint Chief Complaint: Right sided vision loss History of Present Illness - Admitted From Admitted From:: Home - History Obtained From Records Reviewed: Yes History obtained from: Patient, ER Physician, EMR - History of Present Illness HPI Comment/Other: This is a 66-year-old female with a past medical history significant for stroke, hypertension, insulin-dependent diabetes mellitus, COPD who presents today complaining of right-sided vision loss. She states her symptoms began yesterday and she could not see from the outside portion of her right eye. She did not seek medical attention because she had no other deficits or headache. She states when she had her prior stroke at the age of 32 she had a headache that was so severe and because she did not have at this time, she did not think much of it. She is speaking with her mother on the phone today when her mother convinced her to go to the emergency department for evaluation. The patient still has right-sided deficits over the lateral aspect of the eye. She reports a little headache today. Denies any focal deficits or sensation loss. She stopped taking aspirin a few years ago as she got busy taking care of her . She did take 325 mg full dose aspirin today before coming to the emergency department. She denies any fevers, chills, chest pain, dyspnea In the emergency department, she is noted to be hypertensive with systolic in the 180s. Imaging revealed a 4.8 x 2.1 x 2.6 cm left occipital lobe infarction. There was also significant stenosis of the left SCHOOL SECRETARY. She also had 70% stenosis of the left ICA. Neurology was contacted who recommended medical management with aspirin and Plavix for 21 days and that there was no intervention to be offered to the patient. Given the above findings, medicine was consulted for admission. History - Past Medical History Cardiovascular: reports: Hypertension, High cholesterol Respiratory: reports: COPD, Shortness of breath Endocrine/Autoimmune: reports: Type 2 diabetes Derm: reports: Other - Past Surgical History General: reports: Other Cardiovascular: reports: Fempop bypass - Family & Social History Family History Comment/Other: Her mother from esophageal cancer. She has 1 brother with a history of coronary artery disease. She is unaware of her father's medical history. Living arrangement: At home Living Situation: With spouse/s.o. Social History Notes: She is a primary caregiver of her . She smoked a pack a day for 30 years but quit about 20 years ago. She rarely drinks alcohol. Meds/Allgy - Home Medications Home Medications: Ambulatory Orders Medication Instructions Recorded Confirmed Losartan [Cozaar] 100 mg PO DAILY 04/19/14 09/08/21 Felodipine [Felodipine ER] 10 mg PO DAILY 10/19/19 09/08/21 Fexofenadine HCl [Jessica Allergy] 180 mg PO DAILY 10/19/19 09/08/21 Insulin Lispro [Humalog Kwikpen 62 - 66 unit SUBQ TID 10/19/19 09/08/21 U-100] Insulin NPH Human Isophane 34 - 42 unit SUBQ BID 10/19/19 09/08/21 [Humulin N] Atorvastatin [Lipitor] 10 mg PO QPM 09/08/21 09/08/21 Hydralazine HCl 50 mg PO QID 09/08/21 09/08/21 carvediloL [Coreg] 12.5 mg PO BID 09/08/21 09/08/21 hydroCHLOROthiazide [Hydrodiuril] 12.5 mg PO DAILY 09/08/21 09/08/21 - Allergies Allergies/Adverse Reactions: Allergies Allergy/AdvReac Type Severity Reaction Status Date / Time lisinopril Allergy Unknown Verified 09/08/21 10:51 Review of Systems - Constitutional Constitutional: denies: Fever, Chills - Eyes Eyes: reports: Blurred vision, Field loss, Vision loss - Ears, Nose & Throat Ears, Nose & Throat: denies: Nasal discharge, Postnasal drainage - Cardiovascular Cariovascular: denies: Chest pain, Exertional dyspnea, Decr. exercise tolerance - Respiratory Respiratory: denies: Cough, SOB at rest, SOB with exertion - Gastrointestinal Gastrointestinal: denies: Abdominal pain, Nausea, Vomiting - Genitourinary Genitourinary: denies: Dysuria, Frequency, Urgency - Musculoskeletal Musculoskeletal: denies: Limited range of motion, Muscle weakness - Integumentary Integumentary: denies: Rash - Neurological Neurological: reports: Headache. denies: General weakness, Focal weakness - Hematologic/Lymphatic Hematologic/Lymphatic: denies: Anemia, Bleeding tendencies - All Other Systems All Other Systems: reports: Reviewed and negative Prior Level of Functionality: She is independent with her ADL's. Exam - Vital Signs Reviewed Vital Signs: Yes Vital Signs: Vital Signs x48h Temp Pulse Resp BP Pulse Ox 09/08/21 12:30 85 16 95 09/08/21 12:00 83 16 150/125 H 95 09/08/21 11:30 85 16 196/65 H 95 09/08/21 11:22 86 19 196/65 H 97 09/08/21 10:51 85 14 172/67 H 94 09/08/21 10:40 36.5 C 86 19 172/67 H 95 - Physical Exam General Appearance: positive: No acute distress, Alert Eyes Bilateral: positive: Normal inspection, PERRL, EOMI, Conjunctivae nml ENT: positive: ENT inspection nml Neck: positive: Nml inspection Respiratory: positive: No respiratory distress. negative: Wheezes, Rales Cardiovascular: positive: Regular rate & rhythm, Systolic murmur. negative: Irregularly irregular, Tachycardia Abdomen: positive: Non-tender, No distention. negative: Tenderness Skin: positive: Warm, Dry Extremities: positive: No pedal edema Neurologic/Psychiatric: positive: Motor nml, Sensation nml, Other (Right sided partial hemianopia.). negative: Disoriented to person, Disoriented to place, Disoriented to time, Facial droop, Slurred/abnml speech Conclusion/Plan - Problem List (1) Acute left SCHOOL SECRETARY stroke Conclusion/Plan: Unfortunately, imaging reveals a left acute occipital stroke in the SCHOOL SECRETARY distribution. She now has visual deficits due to stroke which consists of right hemianopsia of the lateral field. This was discussed with neurology and they recommended medical management with aspirin and Plavix for 21 days. We will admit her under inpatient status and allow permissive hypertension through this evening as it has already been around 24 hours since the stroke. We will start her on Lipitor. Resume home losartan and felodipine in the morning. Monitor on telemetry. We have ordered MRI for Friday. Unfortunately we do not have echocardiogram for the next week so this will need to be obtained on an outpatient basis. PT and OT have been consulted. Check A1c and lipid panel. She will need outpatient follow-up with neurology. (2) Left carotid artery stenosis Conclusion/Plan: CTA of the neck showed a left carotid artery stenosis of approximately 70%. She already has a history of right carotid artery stenosis status post endarterectomy. She will need follow-up with vascular surgery and neurologist. She will be treated with aspirin, Plavix and Lipitor for the time being. (3) Hypertension Conclusion/Plan: Her blood pressure is currently elevated with systolics in the 180s which we will allow permissive hypertension given the recent stroke. We will look to resume her home antihypertensives tomorrow. (4) Insulin dependent diabetes mellitus Conclusion/Plan: Her blood glucose is currently well controlled. We will resume her home insulin regimen and a carb controlled diet. Check an A1c. - Lab Results Lab results reviewed: Yes Fish Bones: 09/09/21 04:35 09/09/21 04:35 - Diagnostic Imaging Results Diagnostic Imaging Results: positive: Final report reviewed - EKG Results EKG Interpreted Independently: Yes EKG Findings: EKG reveals a sinus rhythm with nonspecific ST segment changes through V4 to V6. Core Measures - Anticipated LOS I expect patient to be DC'd or transferred within 96 hours.: Yes - Issues Hospital Issues and Management Plan: 66-year-old female with history of insulin-dependent diabetes mellitus and hypertension presents with vision changes found to have a subacute left SCHOOL SECRETARY stroke. - DVT/VTE - Prophylaxis VTE/DVT Device ordered at admit?: Yes VTE/DVT Prophylaxis med ordered at admit?: No
[2021-09-08 14:08] LABS: ESTIMATED AVERAGE GLUCOSE 183 mg/dL (70-100)
[2021-09-08 14:21] LABS: CHOL/HDL RATIO 7.8 (<4.4); CHOLESTEROL 243 mg/dL; HDL CHOLESTEROL 31 mg/dL; LDL CHOLESTEROL,CALCULATED 147 mg/dL; LDL/HDL RATIO 4.7 (<4.4); TRIGLYCERIDES 326 mg/dL; VLDL CHOLESTEROL 65 mg/dL
[2021-09-08 15:45] LABS: B. PARAPERTUSSIS- RESP PCR PAN NOT DETECTED; B. PERTUSSIS- RESP PCR PANEL NOT DETECTED; C. PNEUMONIAE- RESP PCR PANEL NOT DETECTED; CORONAVIRUS 229E-RESP PCR NOT DETECTED; CORONAVIRUS HKU1-RESP PCR NOT DETECTED; CORONAVIRUS NL63-RESP PCR NOT DETECTED; CORONAVIRUS OC43-RESP PCR NOT DETECTED; HUMAN METAPNEUMOVIRUS NOT DETECTED; INFLUENZA A- RESP PCR PANEL NOT DETECTED; INFLUENZA B - RESP PCR PANEL NOT DETECTED; M. PNEUMONIAE- RESP PCR PANEL NOT DETECTED; PARAINFLUENZA VIRUS 1 NOT DETECTED; PARAINFLUENZA VIRUS 2 NOT DETECTED; PARAINFLUENZA VIRUS 3 NOT DETECTED; PARAINFLUENZA VIRUS 4 NOT DETECTED; RHINOVIRUS/ENTEROVIRUS NOT DETECTED; RSV- RESP PCR PANEL NOT DETECTED; SARS-CoV-2 -RESP PCR PANEL NOT DETECTED
[2021-09-08] MEDS ORDERED: ALBUTEROL NEB 2.5 MG/3 ML INH PRN (16:34)
[2021-09-08] MEDS: INSULIN ASPART 300 UNIT/3 ML PEN SUBQ SCH ×2 (17:40→21:13)
[2021-09-08] MEDS: SODIUM CHLORIDE FLUSH 0.9% 10 ML SYRINGE IVP SCH (17:40)
[2021-09-08] MEDS: ATORVASTATIN 40 MG TABLET PO SCH (21:12)
[2021-09-08] MEDS: carvediloL 12.5 MG TABLET PO SCH (21:12)
[2021-09-08] MEDS: INSULIN NPH HUMAN 300 UNIT/3 ML VIAL SUBQ SCH (21:16)
[2021-09-09] MEDS: SODIUM CHLORIDE FLUSH 0.9% 10 ML SYRINGE IVP SCH ×3 (01:00→17:30)
[2021-09-09] MEDS: ACETAMINOPHEN 325 MG TABLET PO PRN ×2 (04:36→21:23)
[2021-09-09 05:08] LABS: BASOPHILS # (AUTO) 0.1 10^3/uL (0.0-0.1); BASOPHILS % (AUTO) 0.8 %; EOSINOPHILS # (AUTO) 0.2 10^3/uL (0.0-0.7); HCT - HEMATOCRIT 45.5 % (37.0-47.0); HGB - HEMOGLOBIN 14.7 g/dL (12.0-16.0); LYMPHOCYTES # (AUTO) 1.6 10^3/uL (1.5-3.5); LYMPHOCYTES % (AUTO) 26.1 %; MEAN CORPUSCULAR HGB CONC 32.3 g/dL (32.0-36.0); MEAN CORPUSCULAR VOLUME 92.9 fL (81.0-99.0); MEAN PLATELET VOLUME 10.6 fL (7.9-10.8); MONOCYTES # (AUTO) 0.6 10^3/uL (0.0-1.0); NEUTROPHILS # (AUTO) 3.7 10^3/uL (1.5-6.6); NEUTROPHILS % (AUTO) 60.8 %; PLT - PLATELET COUNT 245 10^3/uL (130-450); WHITE BLOOD COUNT 6.1 x10^3/uL (4.8-10.8)
[2021-09-09 05:10] LABS: CALCIUM 8.4 mg/dL (8.5-10.3); CREATININE 1.4 mg/dL (0.4-1.0); POTASSIUM 4.2 mmol/L (3.5-5.0)
--- NOTE | 2021-09-09 07:58 | PROVIDER PROGRESS NOTE ---
Subjective - Prog Note Date Prog Note Date: 09/09/21 - Subjective Subjective: She is doing well today. Still has right eye peripheral vision loss. Does not feel as much improved. Denies any focal weaknesses. Current Medications - Current Medications Current Medications: Active Medications Acetaminophen (Acetaminophen 325 Mg Tablet) 650 mg PO Q4HR PRN PRN Reason: Pain or Fever > 38C (100.4F) Last Admin: 09/09/21 04:36 Dose: 650 mg Documented by: Albuterol (Albuterol Neb 2.5 Mg/3 Ml) 2.5 mg INH RTQ4H PRN PRN Reason: Wheezing Aspirin (Aspirin Chew 81 Mg Tablet) 81 mg PO DAILY FORMERLY [facility], [facility] Last Admin: 09/09/21 09:26 Dose: 81 mg Documented by: Atorvastatin Calcium (Atorvastatin 40 Mg Tablet) 40 mg PO QPM FOR[facility]LY [facility], [facility] Last Admin: 09/08/21 21:12 Dose: 40 mg Documented by: Carvedilol (Carvedilol 12.5 Mg Tablet) 12.5 mg PO BID FOR[facility]LY [facility], [facility] Last Admin: 09/09/21 09:27 Dose: 12.5 mg Documented by: Clopidogrel Bisulfate (Clopidogrel 75 Mg Tablet) 75 mg PO DAILY FOR[facility]LY [facility], [facility] Last Admin: 09/09/21 09:27 Dose: 75 mg Documented by: Insulin Aspart (Insulin Aspart 300 Unit/3 Ml Pen) 1 - 9 unit SUBQ 0800,1200,1700,2100 FOR[facility]LY [facility], [facility]; Protocol Last Admin: 09/09/21 12:17 Dose: 1 unit Documented by: Insulin Aspart (Insulin Aspart 300 Unit/3 Ml Pen) 30 unit SUBQ TIDWM FOR[facility]LY [facility], [facility] Last Admin: 09/09/21 12:18 Dose: 30 unit Documented by: Insulin Human NPH (Insulin Nph Human 300 Unit/3 Ml Vial) 34 - 42 unit SUBQ BID FOR[facility], [facility] Last Admin: 09/09/21 09:24 Dose: 34 unit Documented by: Losartan Potassium (Losartan 50 Mg Tablet) 100 mg PO DAILY [facility] Last Admin: 09/09/21 09:27 Dose: 100 mg Documented by: Ondansetron HCl (Ondansetron Odt 4 Mg Tablet) 4 mg TL Q6HR PRN PRN Reason: Nausea / Vomiting Sodium Chloride (Sodium Chloride Flush 0.9% 10 Ml Syringe) 10 ml IVP PRN PRN PRN Reason: NEEDED PER PROVIDER ORDERS Sodium Chloride (Sodium Chloride Flush 0.9% 10 Ml Syringe) 10 ml IVP 0100,0900,1700 CANDICE Last Admin: 09/09/21 09:28 Dose: 10 ml Documented by: Losartan [Cozaar] 100 mg PO DAILY 04/19/14 Felodipine [Felodipine ER] 10 mg PO DAILY 10/19/19 Fexofenadine HCl [Jessica Allergy] 180 mg PO DAILY 10/19/19 Insulin Lispro [Humalog Kwikpen U-100] 62 - 66 unit SUBQ TID 10/19/19 Insulin NPH Human Isophane [Humulin N] 34 - 42 unit SUBQ BID 10/19/19 Atorvastatin [Lipitor] 10 mg PO QPM 09/08/21 Hydralazine HCl 50 mg PO QID 09/08/21 carvediloL [Coreg] 12.5 mg PO BID 09/08/21 hydroCHLOROthiazide [Hydrodiuril] 12.5 mg PO DAILY 09/08/21 Objective - Vital Signs/Intake & Output Reviewed Vital Signs: Yes Vital Signs: Vital Signs x48h Temp Pulse Resp BP Pulse Ox 09/09/21 04:32 37.2 C 78 20 110/76 94 Intake & Output: Intake & Output 09/06/21 09/07/21 09/08/21 09/09/21 23:59 23:59 23:59 23:59 Intake Total 1540 Balance 1540 - Objective General Appearance: positive: No acute distress, Alert Eyes Bilateral: positive: Normal inspection, Conjunctivae nml ENT: positive: ENT inspection nml Neck: positive: Nml inspection Respiratory: positive: No respiratory distress. negative: Wheezes, Rales Cardiovascular: positive: Regular rate & rhythm. negative: Tachycardia, Systolic murmur Skin: positive: Warm, Dry Extremities: positive: No pedal edema Neurologic/Psychiatric: positive: Motor nml, Sensation nml, Other (Right peripheral visual field deficit persists.). negative: Disoriented to person, Disoriented to place, Facial droop, Slurred/abnml speech - Lab Results Fish Bones: 09/09/21 04:35 09/09/21 04:35 Other Labs: Lab Results x24hrs 09/09/21 09/09/21 09/08/21 Range/Units 04:35 04:35 14:38 WBC 6.1 (4.8-10.8) x10^3/uL RBC 4.90 (4.20-5.40) 10^6/uL Hgb 14.7 (12.0-16.0) g/dL Hct 45.5 (37.0-47.0) % MCV 92.9 (81.0-99.0) fL MCH 30.0 (27.0-31.0) pg MCHC 32.3 (32.0-36.0) g/dL RDW 13.0 (12.0-15.0) % Plt Count 245 (130-450) 10^3/uL MPV 10.6 (7.9-10.8) fL Neut # (Auto) 3.7 (1.5-6.6) 10^3/uL Lymph # (Auto) 1.6 (1.5-3.5) 10^3/uL Swift # (Auto) 0.6 (0.0-1.0) 10^3/uL Eos # (Auto) 0.2 (0.0-0.7) 10^3/uL Baso # (Auto) 0.1 (0.0-0.1) 10^3/uL Absolute Nucleated RBC 0.00 x10^3/uL Nucleated RBC % 0.0 /100WBC Sodium 134 L (135-145) mmol/L Potassium 4.2 (3.5-5.0) mmol/L Chloride 96 L (101-111) mmol/L Carbon Dioxide 29 (21-32) mmol/L Anion Gap 9.0 (6-13) BUN 20 (6-20) mg/dL Creatinine 1.4 H (0.4-1.0) mg/dL Estimated GFR (MDRD) 38 L (>89) Glucose 146 H (70-100) mg/dL Estimat Average Glucose (70-100) mg/dL Hemoglobin A1c % (4.27-6.07) % Lactic Acid (0.5-2.2) mmol/L Calcium 8.4 L (8.5-10.3) mg/dL Total Bilirubin (0.2-1.0) mg/dL AST (10-42) IU/L ALT (10-60) IU/L Alkaline Phosphatase (42-121) IU/L Troponin I High Sens (2.3-14.8) ng/L Total Protein (6.7-8.2) g/dL Albumin (3.2-5.5) g/dL Globulin (2.1-4.2) g/dL Albumin/Globulin Ratio (1.0-2.2) Triglycerides ( - 149) mg/dL Cholesterol ( - 199) mg/dL LDL Cholesterol, Calc ( - 129) mg/dL VLDL Cholesterol mg/dL HDL Cholesterol (60 - ) mg/dL LDL/HDL Ratio (<4.4) Cholesterol/HDL Ratio (<4.4) Lipase (22-51) U/L Urine Color Urine Clarity (CLEAR) Urine pH (5.0-7.5) PH Ur Specific [place] (1.002-1.030) Urine Protein (NEGATIVE) mg/dL Urine Glucose (UA) (NEGATIVE) mg/dL Urine Ketones (NEGATIVE) mg/dL Urine Occult Blood (NEGATIVE) Urine Nitrite (NEGATIVE) Urine Bilirubin (NEGATIVE) Urine Urobilinogen (NORMAL) E.U./dL Ur Leukocyte Esterase (NEGATIVE) Urine RBC (0-5) /HPF Urine WBC (0-5) /HPF Ur Squamous Epith Cells (<= Few) Urine Bacteria (None Seen) /HPF Ur Microscopic Review Urine Culture Comments Nasal Adenovirus (PCR) NOT DETECTED Nasal B. parapertussis DNA (PCR) NOT DETECTED Nasal Coronavir 229E PCR NOT DETECTED Nasal Coronavir HKU1 PCR NOT DETECTED Nasal Coronavir NL63 PCR NOT DETECTED Nasal Coronavir OC43 PCR NOT DETECTED Nasal Enterovir/Rhinovir PCR NOT DETECTED Nasal Influenza B PCR NOT DETECTED Nasal Influenza A PCR NOT DETECTED Nasal Parainfluen 1 PCR NOT DETECTED Nasal Parainfluen 2 PCR NOT DETECTED Nasal Parainfluen 3 PCR NOT DETECTED Nasal Parainfluen 4 PCR NOT DETECTED Nasal RSV (PCR) NOT DETECTED Nasal B.pertussis DNA PCR NOT DETECTED Nasal C.pneumoniae (PCR) NOT DETECTED Justin Human Metapneumo PCR NOT DETECTED Nasal M.pneumoniae (PCR) NOT DETECTED Nasal SARS-CoV-2 (PCR) NOT DETECTED 09/08/21 09/08/21 09/08/21 Range/Units 11:40 11:29 11:29 WBC (4.8-10.8) x10^3/uL RBC (4.20-5.40) 10^6/uL Hgb (12.0-16.0) g/dL Hct (37.0-47.0) % MCV (81.0-99.0) fL MCH (27.0-31.0) pg MCHC (32.0-36.0) g/dL RDW (12.0-15.0) % Plt Count (130-450) 10^3/uL MPV (7.9-10.8) fL Neut # (Auto) (1.5-6.6) 10^3/uL Lymph # (Auto) (1.5-3.5) 10^3/uL Swift # (Auto) (0.0-1.0) 10^3/uL Eos # (Auto) (0.0-0.7) 10^3/uL Baso # (Auto) (0.0-0.1) 10^3/uL Absolute Nucleated RBC x10^3/uL Nucleated RBC % /100WBC Sodium (135-145) mmol/L Potassium (3.5-5.0) mmol/L Chloride (101-111) mmol/L Carbon Dioxide (21-32) mmol/L Anion Gap (6-13) BUN (6-20) mg/dL Creatinine (0.4-1.0) mg/dL Estimated GFR (MDRD) (>89) Glucose (70-100) mg/dL Estimat Average Glucose (70-100) mg/dL Hemoglobin A1c % (4.27-6.07) % Lactic Acid (0.5-2.2) mmol/L Calcium (8.5-10.3) mg/dL Total Bilirubin (0.2-1.0) mg/dL AST (10-42) IU/L ALT (10-60) IU/L Alkaline Phosphatase (42-121) IU/L Troponin I High Sens 14.5 (2.3-14.8) ng/L Total Protein (6.7-8.2) g/dL Albumin (3.2-5.5) g/dL Globulin (2.1-4.2) g/dL Albumin/Globulin Ratio (1.0-2.2) Triglycerides 326 H ( - 149) mg/dL Cholesterol 243 H ( - 199) mg/dL LDL Cholesterol, Calc 147 H ( - 129) mg/dL VLDL Cholesterol 65 mg/dL HDL Cholesterol 31 L (60 - ) mg/dL LDL/HDL Ratio 4.7 (<4.4) Cholesterol/HDL Ratio 7.8 (<4.4) Lipase (22-51) U/L Urine Color YELLOW Urine Clarity CLEAR (CLEAR) Urine pH 7.0 (5.0-7.5) PH Ur Specific [place] 1.020 (1.002-1.030) Urine Protein 100 H (NEGATIVE) mg/dL Urine Glucose (UA) NEGATIVE (NEGATIVE) mg/dL Urine Ketones NEGATIVE (NEGATIVE) mg/dL Urine Occult Blood TRACE-INTA (NEGATIVE) Urine Nitrite NEGATIVE (NEGATIVE) Urine Bilirubin NEGATIVE (NEGATIVE) Urine Urobilinogen 0.2 (NORMAL) (NORMAL) E.U./dL Ur Leukocyte Esterase NEGATIVE (NEGATIVE) Urine RBC 0-5 (0-5) /HPF Urine WBC 0-3 (0-5) /HPF Ur Squamous Epith Cells RARE Squamous (<= Few) Urine Bacteria Few (None Seen) /HPF Ur Microscopic Review INDICATED Urine Culture Comments NOT INDICATED Nasal Adenovirus (PCR) Nasal B. parapertussis DNA (PCR) Nasal Coronavir 229E PCR Nasal Coronavir HKU1 PCR Nasal Coronavir NL63 PCR Nasal Coronavir OC43 PCR Nasal Enterovir/Rhinovir PCR Nasal Influenza B PCR Nasal Influenza A PCR Nasal Parainfluen 1 PCR Nasal Parainfluen 2 PCR Nasal Parainfluen 3 PCR Nasal Parainfluen 4 PCR Nasal RSV (PCR) Nasal B.pertussis DNA PCR Nasal C.pneumoniae (PCR) Justin Human Metapneumo PCR Nasal M.pneumoniae (PCR) Nasal SARS-CoV-2 (PCR) 09/08/21 09/08/21 09/08/21 Range/Units 11:29 11:29 11:29 WBC (4.8-10.8) x10^3/uL RBC (4.20-5.40) 10^6/uL Hgb (12.0-16.0) g/dL Hct (37.0-47.0) % MCV (81.0-99.0) fL MCH (27.0-31.0) pg MCHC (32.0-36.0) g/dL RDW (12.0-15.0) % Plt Count (130-450) 10^3/uL MPV (7.9-10.8) fL Neut # (Auto) (1.5-6.6) 10^3/uL Lymph # (Auto) (1.5-3.5) 10^3/uL Swift # (Auto) (0.0-1.0) 10^3/uL Eos # (Auto) (0.0-0.7) 10^3/uL Baso # (Auto) (0.0-0.1) 10^3/uL Absolute Nucleated RBC x10^3/uL Nucleated RBC % /100WBC Sodium 137 (135-145) mmol/L Potassium 4.1 (3.5-5.0) mmol/L Chloride 97 L (101-111) mmol/L Carbon Dioxide 30 (21-32) mmol/L Anion Gap 10.0 (6-13) BUN 21 H (6-20) mg/dL Creatinine 1.4 H (0.4-1.0) mg/dL Estimated GFR (MDRD) 38 L (>89) Glucose 110 H (70-100) mg/dL Estimat Average Glucose 183 H (70-100) mg/dL Hemoglobin A1c % 8.0 H (4.27-6.07) % Lactic Acid 1.5 (0.5-2.2) mmol/L Calcium 9.2 (8.5-10.3) mg/dL Total Bilirubin 1.0 (0.2-1.0) mg/dL AST 27 (10-42) IU/L ALT 32 (10-60) IU/L Alkaline Phosphatase 52 (42-121) IU/L Troponin I High Sens (2.3-14.8) ng/L Total Protein 7.6 (6.7-8.2) g/dL Albumin 3.8 (3.2-5.5) g/dL Globulin 3.8 (2.1-4.2) g/dL Albumin/Globulin Ratio 1.0 (1.0-2.2) Triglycerides ( - 149) mg/dL Cholesterol ( - 199) mg/dL LDL Cholesterol, Calc ( - 129) mg/dL VLDL Cholesterol mg/dL HDL Cholesterol (60 - ) mg/dL LDL/HDL Ratio (<4.4) Cholesterol/HDL Ratio (<4.4) Lipase 41 (22-51) U/L Urine Color Urine Clarity (CLEAR) Urine pH (5.0-7.5) PH Ur Specific [place] (1.002-1.030) Urine Protein (NEGATIVE) mg/dL Urine Glucose (UA) (NEGATIVE) mg/dL Urine Ketones (NEGATIVE) mg/dL Urine Occult Blood (NEGATIVE) Urine Nitrite (NEGATIVE) Urine Bilirubin (NEGATIVE) Urine Urobilinogen (NORMAL) E.U./dL Ur Leukocyte Esterase (NEGATIVE) Urine RBC (0-5) /HPF Urine WBC (0-5) /HPF Ur Squamous Epith Cells (<= Few) Urine Bacteria (None Seen) /HPF Ur Microscopic Review Urine Culture Comments Nasal Adenovirus (PCR) Nasal B. parapertussis DNA (PCR) Nasal Coronavir 229E PCR Nasal Coronavir HKU1 PCR Nasal Coronavir NL63 PCR Nasal Coronavir OC43 PCR Nasal Enterovir/Rhinovir PCR Nasal Influenza B PCR Nasal Influenza A PCR Nasal Parainfluen 1 PCR Nasal Parainfluen 2 PCR Nasal Parainfluen 3 PCR Nasal Parainfluen 4 PCR Nasal RSV (PCR) Nasal B.pertussis DNA PCR Nasal C.pneumoniae (PCR) Justin Human Metapneumo PCR Nasal M.pneumoniae (PCR) Nasal SARS-CoV-2 (PCR) 09/08/21 Range/Units 11:29 WBC 6.5 (4.8-10.8) x10^3/uL RBC 4.96 (4.20-5.40) 10^6/uL Hgb 14.7 (12.0-16.0) g/dL Hct 45.8 (37.0-47.0) % MCV 92.3 (81.0-99.0) fL MCH 29.6 (27.0-31.0) pg MCHC 32.1 (32.0-36.0) g/dL RDW 13.0 (12.0-15.0) % Plt Count 259 (130-450) 10^3/uL MPV 10.2 (7.9-10.8) fL Neut # (Auto) 4.3 (1.5-6.6) 10^3/uL Lymph # (Auto) 1.4 L (1.5-3.5) 10^3/uL [place] # (Auto) 0.5 (0.0-1.0) 10^3/uL Eos # (Auto) 0.2 (0.0-0.7) 10^3/uL Baso # (Auto) 0.1 (0.0-0.1) 10^3/uL Absolute Nucleated RBC 0.00 x10^3/uL Nucleated RBC % 0.0 /100WBC Sodium (135-145) mmol/L Potassium (3.5-5.0) mmol/L Chloride (101-111) mmol/L Carbon Dioxide (21-32) mmol/L Anion Gap (6-13) BUN (6-20) mg/dL Creatinine (0.4-1.0) mg/dL Estimated GFR (MDRD) (>89) Glucose (70-100) mg/dL Estimat Average Glucose (70-100) mg/dL Hemoglobin A1c % (4.27-6.07) % Lactic Acid (0.5-2.2) mmol/L Calcium (8.5-10.3) mg/dL Total Bilirubin (0.2-1.0) mg/dL AST (10-42) IU/L ALT (10-60) IU/L Alkaline Phosphatase (42-121) IU/L Troponin I High Sens (2.3-14.8) ng/L Total Protein (6.7-8.2) g/dL Albumin (3.2-5.5) g/dL Globulin (2.1-4.2) g/dL Albumin/Globulin Ratio (1.0-2.2) Triglycerides ( - 149) mg/dL Cholesterol ( - 199) mg/dL LDL Cholesterol, Calc ( - 129) mg/dL VLDL Cholesterol mg/dL HDL Cholesterol (60 - ) mg/dL LDL/HDL Ratio (<4.4) Cholesterol/HDL Ratio (<4.4) Lipase (22-51) U/L Urine Color Urine Clarity (CLEAR) Urine pH (5.0-7.5) PH Ur Specific [place] (1.002-1.030) Urine Protein (NEGATIVE) mg/dL Urine Glucose (UA) (NEGATIVE) mg/dL Urine Ketones (NEGATIVE) mg/dL Urine Occult Blood (NEGATIVE) Urine Nitrite (NEGATIVE) Urine Bilirubin (NEGATIVE) Urine Urobilinogen (NORMAL) E.U./dL Ur Leukocyte Esterase (NEGATIVE) Urine RBC (0-5) /HPF Urine WBC (0-5) /HPF Ur Squamous Epith Cells (<= Few) Urine Bacteria (None Seen) /HPF Ur Microscopic Review Urine Culture Comments Nasal Adenovirus (PCR) Nasal B. 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 Her only deficit is right peripheral field loss. She is on aspirin and Plavix which neurology recommended for 21 days followed by aspirin and Lipitor. Her LDL revealed significant elevated LDL and we have started her on Lipitor 40 mg in the evening. An MRI is ordered for tomorrow. She is stable from a blood pressure perspective and we have resumed her home losartan and carvedilol with blood pressures in the 130s to 140s. If this is stable tomorrow she can likely be discharged home. (2) Left carotid artery stenosis Impression: CTA of the neck showed a left carotid artery stenosis of approximately 70%. She already has a history of right carotid artery stenosis status post endarterectomy. She will need follow-up with vascular surgery and neurologist. She will be treated with aspirin, Plavix and Lipitor for the time being. (3) Hypertension Impression: Her blood pressure is currently stable with systolics in the 130s. We resumed her home losartan and carvedilol. Have held hydrochlorothiazide, hydralazine, felodipine to prevent hypotension. If necessary, we will add felodipine first. (4) Insulin dependent diabetes mellitus Impression: Her A1c was found to be 8%. Her blood glucose is well controlled at this time. We will continue her home insulin regimen and will have the certified diabetes educator meet with her tomorrow.
[2021-09-09] MEDS ORDERED: INSULIN LISPRO 100 UNIT/1 ML 10 ML MDV SUBQ SCH (08:00)
[2021-09-09] MEDS: INSULIN ASPART 300 UNIT/3 ML PEN SUBQ SCH ×7 (09:22→20:44)
[2021-09-09] MEDS: INSULIN NPH HUMAN 300 UNIT/3 ML VIAL SUBQ SCH (09:24)
[2021-09-09] MEDS: ASPIRIN CHEW 81 MG TABLET PO SCH (09:26)
[2021-09-09] MEDS: LOSARTAN 50 MG TABLET PO SCH (09:27)
[2021-09-09] MEDS: CLOPIDOGREL 75 MG TABLET PO SCH (09:27)
[2021-09-09] MEDS: carvediloL 12.5 MG TABLET PO SCH ×2 (09:27→20:51)
[2021-09-09] MEDS: ATORVASTATIN 40 MG TABLET PO SCH (20:51)
[2021-09-10] MEDS: INSULIN NPH HUMAN 300 UNIT/3 ML VIAL SUBQ SCH ×3 (00:10→23:17)
[2021-09-10] MEDS: SODIUM CHLORIDE FLUSH 0.9% 10 ML SYRINGE IVP SCH ×3 (04:39→17:50)
[2021-09-10] MEDS: ACETAMINOPHEN 325 MG TABLET PO PRN ×2 (04:39→21:48)
[2021-09-10 05:32] LABS: BASOPHILS # (AUTO) 0.1 10^3/uL (0.0-0.1); BASOPHILS % (AUTO) 0.9 %; EOSINOPHILS # (AUTO) 0.2 10^3/uL (0.0-0.7); EOSINOPHILS % (AUTO) 2.9 %; HCT - HEMATOCRIT 42.9 % (37.0-47.0); HGB - HEMOGLOBIN 13.8 g/dL (12.0-16.0); LYMPHOCYTES # (AUTO) 2.3 10^3/uL (1.5-3.5); LYMPHOCYTES % (AUTO) 33.6 %; MEAN CORPUSCULAR HEMOGLOBIN 29.9 pg (27.0-31.0); MEAN CORPUSCULAR HGB CONC 32.2 g/dL (32.0-36.0); MEAN CORPUSCULAR VOLUME 92.9 fL (81.0-99.0); MEAN PLATELET VOLUME 10.7 fL (7.9-10.8); MONOCYTES # (AUTO) 0.7 10^3/uL (0.0-1.0); MONOCYTES % (AUTO) 9.4 %; NEUTROPHILS # (AUTO) 3.7 10^3/uL (1.5-6.6); NEUTROPHILS % (AUTO) 53.1 %; PLT - PLATELET COUNT 249 10^3/uL (130-450); RED BLOOD COUNT 4.62 10^6/uL (4.20-5.40); WHITE BLOOD COUNT 6.9 x10^3/uL (4.8-10.8)
[2021-09-10 05:40] LABS: CALCIUM 8.3 mg/dL (8.5-10.3); CREATININE 1.5 mg/dL (0.4-1.0); POTASSIUM 4.4 mmol/L (3.5-5.0)
[2021-09-10] MEDS ORDERED: SODIUM CHLORIDE 0.9% 500 ML IV ONE (07:42)
--- NOTE | 2021-09-10 08:16 | PHARMACY PROGRESS NOTE ---
- Best Possible Medication History Admit Date and Time: 09/08/21 1350 Processed by: Nursing Medication History completed: Yes As the person ultimately responsible for medication therapy, providers are able to order a medication from an existing home medication list in [facility] via the "Reconcile Routine" prior to Confirmation of that medication by customer support engineer. Such practice is discouraged except when the physician, in their clinical judgment, deems that a medical need exists for a medication without regard to previous use.
[2021-09-10] MEDS: INSULIN ASPART 300 UNIT/3 ML PEN SUBQ SCH ×7 (08:59→21:51)
[2021-09-10] MEDS: CLOPIDOGREL 75 MG TABLET PO SCH (09:01)
[2021-09-10] MEDS: ASPIRIN CHEW 81 MG TABLET PO SCH (09:01)
[2021-09-10] MEDS: LOSARTAN 50 MG TABLET PO SCH (09:01)
[2021-09-10] MEDS: carvediloL 12.5 MG TABLET PO SCH (09:01)
--- NOTE | 2021-09-10 09:26 | PROVIDER PROGRESS NOTE ---
Subjective - Prog Note Date Prog Note Date: 09/10/21 - Subjective Subjective: She woke up this morning with worsening visual field deficit. She feels like the visual field deficit of her right eye has progressed more medially. She has no focal deficits or weakness. She went to sleep last night with the deficit she came in with.. Current Medications - Current Medications Current Medications: Active Medications Acetaminophen (Acetaminophen 325 Mg Tablet) 650 mg PO Q4HR PRN PRN Reason: Pain or Fever > 38C (100.4F) Last Admin: 09/10/21 04:39 Dose: 650 mg Documented by: Albuterol (Albuterol Neb 2.5 Mg/3 Ml) 2.5 mg INH RTQ4H PRN PRN Reason: Wheezing Aspirin (Aspirin Chew 81 Mg Tablet) 81 mg PO DAILY [facility] Last Admin: 09/10/21 09:01 Dose: 81 mg Documented by: Atorvastatin Calcium (Atorvastatin 40 Mg Tablet) 40 mg PO QPM [facility] Last Admin: 09/09/21 20:51 Dose: 40 mg Documented by: Carvedilol (Carvedilol 12.5 Mg Tablet) 12.5 mg PO BID [facility] Last Admin: 09/10/21 09:01 Dose: 12.5 mg Documented by: Clopidogrel Bisulfate (Clopidogrel 75 Mg Tablet) 75 mg PO DAILY [facility] Last Admin: 09/10/21 09:01 Dose: 75 mg Documented by: Insulin Aspart (Insulin Aspart 300 Unit/3 Ml Pen) 1 - 9 unit SUBQ 0800,1200,1700,2100 [facility]; Protocol Last Admin: 09/10/21 08:59 Dose: 3 unit Documented by: Insulin Aspart (Insulin Aspart 300 Unit/3 Ml Pen) 30 unit SUBQ TIDWM [facility] Last Admin: 09/10/21 09:00 Dose: 30 unit Documented by: Insulin Human NPH (Insulin Nph Human 300 Unit/3 Ml Vial) 34 - 42 unit SUBQ BID [facility] Last Admin: 09/10/21 09:01 Dose: 34 unit Documented by: Losartan Potassium (Losartan 50 Mg Tablet) 100 mg PO DAILY [facility] Last Admin: 09/10/21 09:01 Dose: 100 mg Documented by: Ondansetron HCl (Ondansetron Odt 4 Mg Tablet) 4 mg TL Q6HR PRN PRN Reason: Nausea / Vomiting Sodium Chloride (Sodium Chloride Flush 0.9% 10 Ml Syringe) 10 ml IVP PRN PRN PRN Reason: NEEDED PER PROVIDER ORDERS Sodium Chloride (Sodium Chloride Flush 0.9% 10 Ml Syringe) 10 ml IVP 0100,0900,1700 CANDICE Last Admin: 09/10/21 09:02 Dose: Not Given Documented by: Losartan [Cozaar] 100 mg PO DAILY 04/19/14 Felodipine [Felodipine ER] 10 mg PO DAILY 10/19/19 Fexofenadine HCl [Jessica Allergy] 180 mg PO DAILY 10/19/19 Insulin Lispro [Humalog Kwikpen U-100] 62 - 66 unit SUBQ TID 10/19/19 Insulin NPH Human Isophane [Humulin N] 34 - 42 unit SUBQ BID 10/19/19 Atorvastatin [Lipitor] 10 mg PO QPM 09/08/21 Hydralazine HCl 50 mg PO QID 09/08/21 carvediloL [Coreg] 12.5 mg PO BID 09/08/21 hydroCHLOROthiazide [Hydrodiuril] 12.5 mg PO DAILY 09/08/21 Objective - Vital Signs/Intake & Output Reviewed Vital Signs: Yes Vital Signs: Vital Signs x48h Temp Pulse Resp BP Pulse Ox 09/10/21 09:19 81 20 140/62 H 09/10/21 08:09 36.8 C 83 20 108/60 96 09/10/21 04:03 36.6 C 70 18 100/46 L 93 Intake & Output: Intake & Output 09/07/21 09/08/21 09/09/21 09/10/21 23:59 23:59 23:59 23:59 Intake Total 1540 1280 Balance 1540 1280 - Objective General Appearance: positive: No acute distress, Alert Eyes Bilateral: positive: Normal inspection, Conjunctivae nml ENT: positive: ENT inspection nml Neck: positive: Nml inspection Respiratory: positive: No respiratory distress. negative: Wheezes, Rales Cardiovascular: positive: Regular rate & rhythm, Systolic murmur. negative: Tachycardia Skin: positive: Warm, Dry Extremities: positive: No pedal edema Neurologic/Psychiatric: positive: Motor nml, Sensation nml, Other (She has right homonymous hemianopia. She has visual field deficit of the lateral aspect of the right eye and the medial aspect of the left eye.). negative: Disoriented to person, Disoriented to place, Facial droop, Slurred/abnml speech - Lab Results Fish Bones: 09/10/21 05:00 09/10/21 05:00 Other Labs: Lab Results x24hrs 09/10/21 09/10/21 Range/Units 05:00 05:00 WBC 6.9 (4.8-10.8) x10^3/uL RBC 4.62 (4.20-5.40) 10^6/uL Hgb 13.8 (12.0-16.0) g/dL Hct 42.9 (37.0-47.0) % MCV 92.9 (81.0-99.0) fL MCH 29.9 (27.0-31.0) pg MCHC 32.2 (32.0-36.0) g/dL RDW 13.0 (12.0-15.0) % Plt Count 249 (130-450) 10^3/uL MPV 10.7 (7.9-10.8) fL Neut # (Auto) 3.7 (1.5-6.6) 10^3/uL Lymph # (Auto) 2.3 (1.5-3.5) 10^3/uL [place] # (Auto) 0.7 (0.0-1.0) 10^3/uL Eos # (Auto) 0.2 (0.0-0.7) 10^3/uL Baso # (Auto) 0.1 (0.0-0.1) 10^3/uL Absolute Nucleated RBC 0.00 x10^3/uL Nucleated RBC % 0.0 /100WBC Sodium 138 (135-145) mmol/L Potassium 4.4 (3.5-5.0) mmol/L Chloride 100 L (101-111) mmol/L Carbon Dioxide 27 (21-32) mmol/L Anion Gap 11.0 (6-13) BUN 29 H (6-20) mg/dL Creatinine 1.5 H (0.4-1.0) mg/dL Estimated GFR (MDRD) 35 L (>89) Glucose 167 H (70-100) mg/dL Calcium 8.3 L (8.5-10.3) mg/dL Assessment/Plan - Problem List (1) 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 This may be related to the hypotension she woke up with this morning as her systolic blood pressure was in the 100s. I have ordered for repeat CT to ensure there is no hemorrhagic conversion. I have also ordered a normal saline bolus and to have her home and hypertensives held this morning. We will continue her on the aspir in and Plavix for the time being if there is no evidence of hemorrhage. Continue Lipitor. She will need to remain hospitalized to monitor her blood pressure and adjust her antihypertensives. We have not obtain echocardiogram this not available at this time at our facility. We will obtain an MRI tomorrow. (2) Left carotid artery stenosis Impression: CTA of the neck showed a left carotid artery stenosis of approximately 70%. She already has a history of right carotid artery stenosis status post endarterectomy. She will need follow-up with vascular surgery and neurologist. She will be treated with aspirin, Plavix and Lipitor for the time being. (3) Hypertension Impression: We will hold her home with hypertensives for now given she is hypotensive this morning with systolics 100s and this may have exacerbated her stroke symptoms. We will resume them when appropriate. I did order for a 500 mL saline bolus to help bring up her blood pressure. (4) Insulin dependent diabetes mellitus Impression: Her A1c was found to be 8%. Her blood glucose is well controlled at this time. We will continue her home insulin regimen and will have the professional services consultant meet with her.
--- NOTE | 2021-09-10 10:00 | CT Report ---
PROCEDURE: Head W/O Stroke Protocol INDICATIONS: Worsening vision loss. Recent stroke. TECHNIQUE: Noncontrast 4.5 mm thick angled axial sections acquired from the foramen magnum to the vertex, with c oronal reformats. For radiation dose reduction, the following was used: automated exposure control, adjustment of mA and/or kV according to patient size. COMPARISON: FINDINGS: Image quality: Excellent. CSF spaces: Basal cisterns are patent. No extra-axial fluid collections. Ventricles are normal in size and shape. Brain: Previous area of low attenuation within the left parietal occipital lobe is again identified and without change. There is no superimposed hemorrhage. No midline shift. No intracranial masses or hemorrhage. Kam-white matter interface is normal. Skull and face: Calvarium and visualized facial bones are intact, without suspicious lesions. Sinuses: Visualized sinuses and mastoids are clear. IMPRESSION: Stable appearance of low-attenuation within the left parietal occipital lobe which is suggestive of s ubacute ischemia. No superimposed hemorrhage. However, MRI brain with and without contrast is recomme nded for further evaluation of ischemia and exclude potential underlying mass lesion. The above findings were discussed with Dr. Irwin on 09/10/21 at 950am. This study fulfills neurological imaging criteria for inclusion or exclusion of acute stroke therapie s based on available published neurological imaging guidelines. Reviewed by: Krysten Vargas MD on 09/10/2021 9:59 AM PST Approved by: Krysten Vargas MD on 09/10/2021 9:59 AM PST Station ID: [id number]
[2021-09-10] MEDS: ATORVASTATIN 40 MG TABLET PO SCH (21:51)
[2021-09-11] MEDS: SODIUM CHLORIDE FLUSH 0.9% 10 ML SYRINGE IVP SCH (00:40)
[2021-09-11 05:19] LABS: BASOPHILS # (AUTO) 0.1 10^3/uL (0.0-0.1); EOSINOPHILS # (AUTO) 0.2 10^3/uL (0.0-0.7); EOSINOPHILS % (AUTO) 3.1 %; HCT - HEMATOCRIT 43.8 % (37.0-47.0); HGB - HEMOGLOBIN 13.9 g/dL (12.0-16.0); LYMPHOCYTES # (AUTO) 2.5 10^3/uL (1.5-3.5); LYMPHOCYTES % (AUTO) 33.6 %; MEAN CORPUSCULAR HEMOGLOBIN 29.4 pg (27.0-31.0); MEAN CORPUSCULAR HGB CONC 31.7 g/dL (32.0-36.0); MEAN CORPUSCULAR VOLUME 92.8 fL (81.0-99.0); MEAN PLATELET VOLUME 10.6 fL (7.9-10.8); MONOCYTES # (AUTO) 0.7 10^3/uL (0.0-1.0); NEUTROPHILS # (AUTO) 3.9 10^3/uL (1.5-6.6); NEUTROPHILS % (AUTO) 52.9 %; PLT - PLATELET COUNT 249 10^3/uL (130-450); RED BLOOD COUNT 4.72 10^6/uL (4.20-5.40); WHITE BLOOD COUNT 7.4 x10^3/uL (4.8-10.8)
[2021-09-11 05:32] LABS: CALCIUM 8.6 mg/dL (8.5-10.3); CREATININE 1.5 mg/dL (0.4-1.0); POTASSIUM 4.7 mmol/L (3.5-5.0)
[2021-09-11] MEDS: ACETAMINOPHEN 325 MG TABLET PO PRN (06:45)
[2021-09-11] MEDS: ASPIRIN CHEW 81 MG TABLET PO SCH (08:21)
[2021-09-11] MEDS: CLOPIDOGREL 75 MG TABLET PO SCH (08:22)
[2021-09-11] MEDS: INSULIN ASPART 300 UNIT/3 ML PEN SUBQ SCH ×4 (08:29→12:05)
[2021-09-11] MEDS: INSULIN NPH HUMAN 300 UNIT/3 ML VIAL SUBQ SCH (08:30)
[2021-09-11] MEDS ORDERED: GADOBUTROL 10 MMOL/10 ML VIAL ONE (11:42)
--- NOTE | 2021-09-11 13:15 | MRI Report ---
PROCEDURE: Brain W/WO INDICATIONS: Stroke with R eye vision deficit CONTRAST: IV CONTRAST: Gadavist ml: 9.0 TECHNIQUE: Noncontrast axial T1 spin echo, axial T2 fast spin echo, sagittal and axial FLAIR, coronal T2 fast sp in echo, axial gradient echo, axial diffusion and ADC through the brain. After the administration of contrast, axial and coronal T1 spin echo with fat saturation through the brain. COMPARISON: CT/CTA brain 09/08/2021 FINDINGS: Image quality: Excellent. CSF spaces: Basal cisterns are patent. No extra-axial fluid collections. Ventricles are normal in size and shape. Brain: Corresponding with the left occipital hypodensity noted on the prior CT, there is focal dense restricted diffusion and sulcal effacement without enhancement consistent with a subacute left media l occipital infarct involving the cuneus and lingual gyral cortex. Otherwise, no midline shift. No intracranial bleeds or masses. No abnormal intracranial enhancement . There is cerebral volume loss for age. There is periventricular white matter chronic small vessel ischemic change. The brainstem appears normal. Normal intravascular flow voids are present. Skull and face: Calvarial marrow is normal in signal. Orbits appear normal. Sinuses: Sinuses and mastoids appear clear. 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 No mass lesion, hemorrhage or midline shift. Reviewed by: Dmitry Sandy MD on 09/11/2021 12:14 PM [facility] Approved by: Dmitry Sandy MD on 09/11/2021 12:14 PM [facility] Station ID: [id number]
--- NOTE | 2021-09-11 15:21 | Discharge Plan ---
Discharge Plan Problem Reviewed?: Yes Disposition: Home, Self Care Condition: Fair Prescriptions: Fenofibrate Nanocrystallized [Fenofibrate] 48 mg PO DAILY #30 tablet Atorvastatin [Lipitor] 40 mg PO QPM #30 tablet Clopidogrel [Plavix] 75 mg PO DAILY #30 tablet Aspirin Chewable [[place] Aspirin] 81 mg PO DAILY #30 tablet Diet: Diabetic (Low fat and Diabetic diet) Activity Restrictions: Activity as Tolerated Shower Restrictions: No Driving Restrictions: Yes (No driving until cleared to resume by PCP or other doctor) Health Concerns: You were hospitalized because of losing vision in the right eye and we diagnosed that you had a stroke in the left posterior brain. We monitored you for an irregular heart rhythm and your blood pressure and cholesterol and provided guidance regarding diabetic management. You are being discharged on a higher dose of Lipitor and a new triglyceride treatment (Fenofibrate). Please stop taking Lipitor 10 mg and start the Lipitor 40 mg. You should now take 1 baby aspirin daily lifelong, and you should take Plavix for 3 to 6 months, the duration will be determined by your PCP or other specialist. These new prescriptions were electronically sent to your [facility] pharmacy in [place]. You should see your PCP in the next 1 week, since you need further things ordered: 1) A complete Echocardiogram with bubble study, since this could not be done while you were here because the Echo department was close during the holiday week, and you need 2) Referral to an Games Dealer to get exercises and recommendations for the vision, and to be cleared to resume driving some day. STOP taking daily HCTZ, it is dehydrating you and stressing your kidneys. Also, DO NOT TAKE the Hydralazine for 1 week or until your PCP advises you to resume it. You may resume all your other pre-hospital medications. Plan of Treatment: As above. Care Goals: Improvement in symptoms and stabilization are the goals. Assessment: The patient understands and is agreeable with the plan. Additional Instructions or Follow Up instructions: If you have any new or worsening symptoms, call your PCP for advice or come to the ER. No Smoking: If you smoke, Please STOP! Call for help. Follow-up with: Georgina Lozano PA-C [Primary Care Provider] -
--- NOTE | 2021-09-11 15:38 | DISCHARGE SUMMARY ---
Discharge Summary Admit Date: 09/08/21 Discharge Date: 09/11/21 Discharging Provider: Dr Maria Esther Hall Primary Care Provider: FRANCISCO Lozano Code Status: Attempt Resuscitation Condition at Discharge: Fair Discharge Disposition: 01 Home, Self Care - HPI History of Present Illness: From the admission H&P of Dr. Mauro Irwin: This is a 66-year-old female with a past medical history significant for stroke, PVD with CEA, hypertension, insulin-dependent diabetes mellitus, eczema and COPD who presents today complaining of right-sided vision loss. She states her symptoms began yesterday and she could not see from the outside portion of her right eye. She did not seek medical attention because she had no other deficits or headache. She states when she had her prior stroke at the age of 32 she had a headache that was so severe and because she did not have at this time, she did not think much of it. She is speaking with her mother on the phone today when her mother convinced her to go to the emergency department for evaluation. The patient still has right-sided deficits over the lateral aspect of the eye. She reports a little headache today. Denies any focal deficits or sensation loss. She stopped taking aspirin a few years ago as she got busy taking care of her . She did take 325 mg full dose aspirin today before coming to the emergency department. She denies any fevers, chills, chest pain, dyspnea In the emergency department, she is noted to be hypertensive with systolic in the 180s. CT brain imaging revealed a 4.8 x 2.1 x 2.6 cm left occipital lobe infarction. There was also significant stenosis of the left BYPRODUCT ENGINEER. She also had 70% stenosis of the left ICA. Neurology was contacted who recommended medical management with aspirin and Plavix for 21 days and that there was no intervention to be offered to the patient. Given the above findings, medicine was consulted for admission. 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 She was started on daily aspirin and Plavix. We continued Lipitor, but the dose was increased. She had worsening vision in the right eye on day 2 which was felt to be from her "soft" blood pressure. CT of the head was repeated that did not show hemorrhagic conversion. We did not obtain an Echocardiogram with bubble study, since the Echo department was closed over the holiday week. She did have a brain MRI before discharge that showed the Left BYPRODUCT ENGINEER territory stroke. At discharge, she had slight return of vision in that right eye. She needs a referral to see Ophthalmology for further recommendations, exercises for rehab, and to someday be cleared to resume driving. (2) Left carotid artery stenosis CTA of the neck showed a left carotid artery stenosis of approximately 70%. She already has a history of right carotid artery stenosis, status post endarterectomy. She will need follow-up with Vascular Surgery and probably with Neurology. She will be on daily aspirin and Plavix and higher dose Lipitor. (3) Hypertension We planned to allow permissive HTN during the acute phase of the stroke, thus we held her home anti-hypertensive meds since she had soft systolic BPs of 100s and she needed a saline bolus. We then resumed her Coreg and Losartan. At the time of discharge, it was advised that she stop using HCTZ completely and that she not take her Hydralazine for about a week and it could be resumed after being seen by the PCP at an office visit. (4) Insulin dependent diabetes mellitus Her A1c was found to be 8%. She was on a diabetic diet and we continued her [facility] insulin regimen. We had the clinical nurse educator meet with her for advice as well. (5) Hyperlipidemia Her fasting lipid panel showed a total cholesterol of 243, and LDL of 145. Her target LDL is 70. Her Lipitor dose was increased from 10 mg to 40 mg and a low fat diet was advised. (6) Hypertriglyceridemia Her fasting triglyceride level was very high at 326. She was started on new Fenofibrate 38 mg daily. (7) Heart murmur She has a murmur of aortic stenosis. The Echo could not be done while she was here, and needs to be scheduled as an outpatient. (8) Eczema She sees Derm for this, she said and keeps her hands in latex gloves. - ALLERGIES Allergies/Adverse Reactions: Allergies Allergy/AdvReac Type Severity Reaction Status Date / Time lisinopril Allergy Unknown Verified 09/08/21 10:51 - MEDICATIONS Home Medications: Ambulatory Orders Medication Instructions Recorded Confirmed Losartan [Cozaar] 100 mg PO DAILY 04/19/14 09/08/21 Felodipine [Felodipine ER] 10 mg PO DAILY 10/19/19 09/08/21 Fexofenadine HCl [Jessica Allergy] 180 mg PO DAILY 10/19/19 09/08/21 Insulin Lispro [Humalog Kwikpen 62 - 66 unit SUBQ TID 10/19/19 09/08/21 U-100] Insulin NPH Human Isophane 34 - 42 unit SUBQ BID 10/19/19 09/08/21 [Humulin N] Hydralazine HCl 50 mg PO QID 09/08/21 09/08/21 carvediloL [Coreg] 12.5 mg PO BID 09/08/21 09/08/21 Aspirin Chewable [[facility] [place] 81 mg PO DAILY #30 tablet 09/11/21 Aspirin] Atorvastatin [Lipitor] 40 mg PO QPM #30 tablet 09/11/21 Clopidogrel [Plavix] 75 mg PO DAILY #30 tablet 09/11/21 Fenofibrate Nanocrystallized 48 mg PO DAILY #30 tablet 09/11/21 [Fenofibrate] - PHYSICAL EXAM AT DISCHARGE General Appearance: positive: No acute distress, Alert Eyes Bilateral: positive: EOMI ENT: positive: ENT inspection nml, No signs of dehydration Neck: positive: Nml inspection, No JVD Respiratory: positive: No respiratory distress, Breath sounds nml Cardiovascular: positive: Regular rate & rhythm, Other (2/6 systolic murmur in aortic aortic area) Abdomen: positive: Non-tender, Nml bowel sounds, No distention Skin: positive: Warm, Dry Extremities: positive: Non-tender, No pedal edema, Other (Both hands are in latex gloves) Neurologic/Psychiatric: positive: Oriented x3, Motor nml, Sensation nml, Other (Has visual field defect of R eye) - LABS Result Diagrams: 09/11/21 04:40 09/11/21 04:40 - DIAGNOSTIC IMAGING Diagnostic Imaging Results: Final report reviewed - FOLLOW UP Follow Up: See FRANCISCO Lozano in next 7-10 days, for a hospital follow visit. Also needs an Ophthalmology referral. - TIME SPENT Time Spent in Discharge (Minutes): 45
[2021-09-11 16:25] VITALS: BP 141/78
[2021-09-11] MEDS ORDERED: GADOBUTROL 10 MMOL/10 ML VIAL IVP ONE (16:44)
== END 2021-09-11 16:30 | disposition home or self-care (01) | DRG 66 ==
LOC: EDUNIT# → ED 10:38 → MS3 13:50
PROVIDERS: ADMIT Internal Medicine; ATTEND Internal Medicine
DX: I63.532 Cerebral infarction due to unspecified occlusion or stenosis of left posterior cerebral artery (principal); H53.461 Homonymous bilateral field defects, right side; I10 Essential (primary) hypertension; I35.0 Nonrheumatic aortic (valve) stenosis; I65.22 Occlusion and stenosis of left carotid artery; E11.51 Type 2 diabetes mellitus with diabetic peripheral angiopathy without gangrene; E78.00 Pure hypercholesterolemia, unspecified; E78.1 Pure hyperglyceridemia; E86.0 Dehydration; L30.9 Dermatitis, unspecified; J44.9 Chronic obstructive pulmonary disease, unspecified; Z20.822 Contact with and (suspected) exposure to COVID-19; Z79.4 Long term (current) use of insulin; Z79.899 Other long term (current) drug therapy; Z87.891 Personal history of nicotine dependence; Z88.8 Allergy status to other drugs, medicaments and biological substances
CPT/HCPCS: 0202U; 36415; 70450; 70496; 70498; 70553; 80048; 80053; 80061; 81001; 83036; 83605; 83690; 84484; 85025; 93005; 96360; 97161; 99284; 99285; A9270; A9585; J1815; Q9967; 81003; 83721; 87086

== ENCOUNTER 2022-06-18 15:23 | Outpatient (CLI) | payer MEDICARE, OTHER ==
[2022-06-18 15:43] LABS: BASOPHILS # (AUTO) 0.1 10^3/uL (0.0-0.1); BASOPHILS % (AUTO) 0.7 %; EOSINOPHILS # (AUTO) 0.2 10^3/uL (0.0-0.7); EOSINOPHILS % (AUTO) 2.3 %; HCT - HEMATOCRIT 43.8 % (37.0-47.0); HGB - HEMOGLOBIN 14.7 g/dL (12.0-16.0); LYMPHOCYTES # (AUTO) 2.2 10^3/uL (1.5-3.5); LYMPHOCYTES % (AUTO) 29.6 %; MEAN CORPUSCULAR HEMOGLOBIN 30.4 pg (27.0-31.0); MEAN CORPUSCULAR HGB CONC 33.6 g/dL (32.0-36.0); MEAN CORPUSCULAR VOLUME 90.5 fL (81.0-99.0); MEAN PLATELET VOLUME 9.9 fL (7.9-10.8); MONOCYTES # (AUTO) 0.5 10^3/uL (0.0-1.0); MONOCYTES % (AUTO) 7.1 %; NEUTROPHILS # (AUTO) 4.5 10^3/uL (1.5-6.6); PLT - PLATELET COUNT 272 10^3/uL (130-450); RED BLOOD COUNT 4.84 10^6/uL (4.20-5.40); RED CELL DISTRIBUTION WIDTH 12.7 % (12.0-15.0); WHITE BLOOD COUNT 7.5 x10^3/uL (4.8-10.8)
[2022-06-18 15:57] LABS: ALBUMIN 3.9 g/dL (3.2-5.5); BILIRUBIN,DIRECT 0.1 mg/dL (0.1-0.5); BILIRUBIN,TOTAL 0.8 mg/dL (0.2-1.0); TOTAL PROTEIN 7.4 g/dL (6.7-8.2)
== END 2022-06-18 15:24 | disposition home or self-care (01) ==
LOC: LAB 15:23
PROVIDERS: ATTEND Physician Assistant
DX: B35.3 Tinea pedis (principal)
CPT/HCPCS: 36415; 80076; 85025

== ENCOUNTER 2022-06-24 11:31 | Outpatient (CLI) | payer MEDICARE, OTHER ==
--- NOTE | 2022-06-24 17:56 | XRAY Report ---
PROCEDURE: Hand 3 View LT INDICATIONS: L THUMB PX TECHNIQUE: Three views of the hand(s) acquired. COMPARISON: None FINDINGS: Bones: No fractures or dislocations. No suspicious bony lesions. Soft tissues: No suspicious soft tissue calcifications. IMPRESSION: No acute finding. Reviewed by: Nicola Cervantes MD on 06/24/2022 5:55 PM PDT Approved by: Nicola Cervantes MD on 06/24/2022 5:55 PM PDT Station ID: [id number]
== END 2022-06-24 23:59 | disposition home or self-care (01) ==
LOC: DI.N 11:31
PROVIDERS: ATTEND Registered Nurse
DX: M79.645 Pain in left finger(s) (principal)

== ENCOUNTER 2022-07-12 11:03 | Outpatient (CLI) | payer MEDICARE ==
[2022-07-12 11:13] LABS: BASOPHILS # (AUTO) 0.1 10^3/uL (0.0-0.1); BASOPHILS % (AUTO) 0.9 %; EOSINOPHILS # (AUTO) 0.2 10^3/uL (0.0-0.7); EOSINOPHILS % (AUTO) 2.5 %; HCT - HEMATOCRIT 45.3 % (37.0-47.0); HGB - HEMOGLOBIN 14.4 g/dL (12.0-16.0); LYMPHOCYTES # (AUTO) 2.1 10^3/uL (1.5-3.5); LYMPHOCYTES % (AUTO) 28.1 %; MEAN CORPUSCULAR HEMOGLOBIN 29.1 pg (27.0-31.0); MEAN CORPUSCULAR HGB CONC 31.8 g/dL (32.0-36.0); MEAN CORPUSCULAR VOLUME 91.7 fL (81.0-99.0); MEAN PLATELET VOLUME 9.5 fL (7.9-10.8); MONOCYTES # (AUTO) 0.6 10^3/uL (0.0-1.0); MONOCYTES % (AUTO) 7.2 %; NEUTROPHILS # (AUTO) 4.6 10^3/uL (1.5-6.6); PLT - PLATELET COUNT 255 10^3/uL (130-450); RED BLOOD COUNT 4.94 10^6/uL (4.20-5.40); RED CELL DISTRIBUTION WIDTH 12.9 % (12.0-15.0); WHITE BLOOD COUNT 7.6 x10^3/uL (4.8-10.8)
[2022-07-12 11:27] LABS: ALBUMIN 3.8 g/dL (3.2-5.5); BILIRUBIN,DIRECT 0.2 mg/dL (0.1-0.5); TOTAL PROTEIN 7.2 g/dL (6.7-8.2)
== END 2022-07-12 11:04 | disposition home or self-care (01) ==
LOC: LAB 11:03
PROVIDERS: ATTEND Physician Assistant
DX: B35.3 Tinea pedis (principal); B35.4 Tinea corporis; L85.1 Acquired keratosis [keratoderma] palmaris et plantaris
CPT/HCPCS: 36415; 80076; 85025

== ENCOUNTER 2022-08-19 09:00 | Outpatient (CLI) | payer MEDICARE ==
[2022-08-19 09:08] LABS: BASOPHILS # (AUTO) 0.1 10^3/uL (0.0-0.1); BASOPHILS % (AUTO) 0.8 %; EOSINOPHILS # (AUTO) 0.1 10^3/uL (0.0-0.7); EOSINOPHILS % (AUTO) 1.7 %; HCT - HEMATOCRIT 47.2 % (37.0-47.0); HGB - HEMOGLOBIN 15.1 g/dL (12.0-16.0); LYMPHOCYTES # (AUTO) 1.5 10^3/uL (1.5-3.5); LYMPHOCYTES % (AUTO) 23.4 %; MEAN CORPUSCULAR HEMOGLOBIN 29.4 pg (27.0-31.0); MEAN PLATELET VOLUME 9.9 fL (7.9-10.8); MONOCYTES # (AUTO) 0.4 10^3/uL (0.0-1.0); MONOCYTES % (AUTO) 6.1 %; NEUTROPHILS # (AUTO) 4.3 10^3/uL (1.5-6.6); NEUTROPHILS % (AUTO) 67.8 %; PLT - PLATELET COUNT 259 10^3/uL (130-450); RED BLOOD COUNT 5.13 10^6/uL (4.20-5.40); RED CELL DISTRIBUTION WIDTH 12.9 % (12.0-15.0); WHITE BLOOD COUNT 6.4 x10^3/uL (4.8-10.8)
[2022-08-19 09:24] LABS: ALBUMIN 3.3 g/dL (3.2-5.5); BILIRUBIN,DIRECT 0.1 mg/dL (0.1-0.5); BILIRUBIN,TOTAL 1.2 mg/dL (0.2-1.0)
== END 2022-08-19 09:01 | disposition home or self-care (01) ==
LOC: LAB 09:00
PROVIDERS: ATTEND Physician Assistant
DX: B35.3 Tinea pedis (principal); B35.4 Tinea corporis; L85.1 Acquired keratosis [keratoderma] palmaris et plantaris
CPT/HCPCS: 36415; 80076; 85025

== ENCOUNTER 2022-10-11 08:15 | Outpatient (CLI) | payer MEDICARE ==
[2022-10-11 08:31] LABS: BASOPHILS # (AUTO) 0.1 10^3/uL (0.0-0.1); BASOPHILS % (AUTO) 0.8 %; EOSINOPHILS # (AUTO) 0.2 10^3/uL (0.0-0.7); EOSINOPHILS % (AUTO) 2.5 %; HGB - HEMOGLOBIN 13.8 g/dL (12.0-16.0); LYMPHOCYTES # (AUTO) 1.8 10^3/uL (1.5-3.5); LYMPHOCYTES % (AUTO) 28.4 %; MEAN CORPUSCULAR HEMOGLOBIN 30.3 pg (27.0-31.0); MEAN CORPUSCULAR HGB CONC 31.4 g/dL (32.0-36.0); MEAN CORPUSCULAR VOLUME 96.7 fL (81.0-99.0); MEAN PLATELET VOLUME 10.2 fL (7.9-10.8); MONOCYTES # (AUTO) 0.5 10^3/uL (0.0-1.0); MONOCYTES % (AUTO) 8.1 %; NEUTROPHILS # (AUTO) 3.8 10^3/uL (1.5-6.6); NEUTROPHILS % (AUTO) 59.7 %; PLT - PLATELET COUNT 255 10^3/uL (130-450); RED BLOOD COUNT 4.55 10^6/uL (4.20-5.40); RED CELL DISTRIBUTION WIDTH 13.7 % (12.0-15.0); WHITE BLOOD COUNT 6.4 x10^3/uL (4.8-10.8)
[2022-10-11 08:42] LABS: ALBUMIN 3.4 g/dL (3.2-5.5); BILIRUBIN,DIRECT 0.1 mg/dL (0.1-0.5); BILIRUBIN,TOTAL 0.7 mg/dL (0.2-1.0)
== END 2022-10-11 08:16 | disposition home or self-care (01) ==
LOC: LAB 08:15
PROVIDERS: ATTEND Physician Assistant
DX: B35.3 Tinea pedis (principal); B35.4 Tinea corporis; L85.1 Acquired keratosis [keratoderma] palmaris et plantaris
CPT/HCPCS: 36415; 80076; 85025

== ENCOUNTER 2022-11-25 10:00 | Inpatient (IN) | payer MEDICARE ==
[2022-11-25 10:52] LABS: BASOPHILS % (AUTO) 0.6 %; EOSINOPHILS # (AUTO) 0.2 10^3/uL (0.0-0.7); EOSINOPHILS % (AUTO) 2.5 %; HCT - HEMATOCRIT 44.6 % (37.0-47.0); LYMPHOCYTES # (AUTO) 1.4 10^3/uL (1.5-3.5); LYMPHOCYTES % (AUTO) 19.6 %; MEAN CORPUSCULAR HEMOGLOBIN 29.3 pg (27.0-31.0); MEAN CORPUSCULAR HGB CONC 29.1 g/dL (32.0-36.0); MEAN CORPUSCULAR VOLUME 100.7 fL (81.0-99.0); MEAN PLATELET VOLUME 9.8 fL (7.9-10.8); MONOCYTES # (AUTO) 0.6 10^3/uL (0.0-1.0); MONOCYTES % (AUTO) 8.3 %; NEUTROPHILS % (AUTO) 68.7 %; PLT - PLATELET COUNT 255 10^3/uL (130-450); RED BLOOD COUNT 4.43 10^6/uL (4.20-5.40); RED CELL DISTRIBUTION WIDTH 14.7 % (12.0-15.0); WHITE BLOOD COUNT 7.2 x10^3/uL (4.8-10.8)
[2022-11-25 11:09] LABS: ALBUMIN 3.2 g/dL (3.2-5.5); ALBUMIN/GLOBULIN RATIO 0.9 (1.0-2.2); BILIRUBIN,TOTAL 0.9 mg/dL (0.2-1.0); CALCIUM 8.4 mg/dL (8.5-10.3); CREATININE 1.6 mg/dL (0.4-1.0); POTASSIUM 4.5 mmol/L (3.5-5.0); TOTAL PROTEIN 6.7 g/dL (6.7-8.2)
--- NOTE | 2022-11-25 11:13 | ED Physician Documentation ---
PD HPI DYSPNEA - Stated complaint Stated Complaint: SOA/SWOLLEN EYES - Chief complaint Chief Complaint: Resp - History obtained from History obtained from: Patient - History of Present Illness Timing - onset: How many weeks ago (6-8 weeks of OSPINA, progressive edema, and orthopnea, but also now 1 week of acute cough, dyspnea, and increased wheezing. History o COPD but no history of CHF.) Timing - duration: Days, Weeks Timing - details: Gradual onset, Still present Inciting event(s): Out of meds (for COPD for 1 week), URI. No: Immobilization/travel Improved by: Inhaler/neb, Sitting up Worsened by: Exertion, Laying flat, Coughing Associated symptoms: Cough, Wheezing, Bilateral edema. No: Fever, Hemoptysis, Chest pain / discomfort Similar symptoms before: Diagnosis (has had COPD but no history of CHF.) Recently seen: Not recently seen Review of Systems Constitutional: reports: Myalgias. denies: Fever Nose: reports: Rhinorrhea / runny nose Throat: denies: Sore throat Cardiac: reports: Pedal edema (progressive over 6 weeks or so; associated wth OSPINA and orthopnea.). denies: Chest pain / pressure, Palpitations, Calf pain Respiratory: reports: Dyspnea, Cough, Wheezing PD PAST MEDICAL HISTORY - Past Medical History Cardiovascular: Hypertension, High cholesterol Respiratory: COPD (had un out of SPiriva, Advair and Albuterol 1 wk ago; pharmacy did not have refills yet. ), Shortness of breath Neuro: CVA Endocrine/Autoimmune: Type 2 diabetes Derm: Other - Past Surgical History General: Other Cardiovascular: Fempop bypass - Present Medications Home Medications: Ambulatory Orders Medication Instructions Recorded Confirmed Fexofenadine HCl [Jessica Allergy] 180 mg PO DAILY 10/19/19 11/25/22 Insulin Lispro [Humalog Kwikpen 30 unit SUBQ QID 10/19/19 11/25/22 U-100] Insulin NPH Human Isophane 29 - 46 unit SUBQ BID 10/19/19 11/25/22 [Humulin N] Aspirin Chewable [[facility] [place] Luis 81 mg PO DAILY #30 tablet 09/11/21 11/25/22 Aspirin] Clopidogrel [Plavix] 75 mg PO DAILY #30 tablet 09/11/21 11/25/22 Fenofibrate Nanocrystallized 48 mg PO DAILY #30 tablet 09/11/21 11/25/22 [Fenofibrate] Hydralazine HCl 1 tab PO QID 11/25/22 11/25/22 Losartan [Cozaar] 1 tab PO BID 11/25/22 11/25/22 NIFEdipine [Procardia Xl] 1 tab PO DAILY 11/25/22 11/25/22 Pregabalin [Lyrica] 1 cap ORAL QPM 11/25/22 11/25/22 - Allergies Allergies/Adverse Reactions: Allergies Allergy/AdvReac Type Severity Reaction Status Date / Time lisinopril AdvReac Mild Respiratory Verified 11/25/22 16:25 - Social History Does the pt smoke?: No Smoking Status: Former smoker PD ED PE NORMAL - Vitals Vital signs reviewed: Yes - General General: Alert and oriented X 3, Well developed/nourished, Other (Having some work of breathing and partial sentence dyspnea with intermittent cough. Audible wheeze.) - HEENT HEENT: Pharynx benign - Neck Neck: Supple, no meningeal sign, No adenopathy, No bruit, Other (Some JVD noted at 45 degrees.) - Cardiac Cardiac: RRR, No murmur - Respiratory Respiratory: No: Clear bilaterally (wheezing exp bilaterally. Also fine crackles at bases bilaterally. ) - Abdomen Abdomen: Soft, Non tender - Derm Derm: Normal color, Warm and dry - Extremities Extremities: No calf tenderness / cord, Other (2+ bilateral pitting lower leg edema. ) - Neuro Neuro: Alert and oriented X 3, No motor deficit, No sensory deficit, Normal speech Eye Opening: Spontaneous Motor: Obeys Commands Verbal: Oriented GCS Score: 15 Results - Vitals Vitals: Vital Signs - 24 hr 11/25/22 11/25/22 11/25/22 10:23 10:45 10:49 Temperature 36.7 C Heart Rate 88 Respiratory 20 Rate Blood Pressure 150/55 H O2 Saturation 85 L 80 L 95 If not protocol 2 : Oxygen Flow, liters/minute 11/25/22 11/25/22 11/25/22 11:00 12:21 13:00 Temperature Heart Rate 83 88 90 Respiratory 19 16 16 Rate Blood Pressure 172/73 H 200/60 H O2 Saturation 92 98 If not protocol 2 2 2 : Oxygen Flow, liters/minute 11/25/22 11/25/22 11/25/22 13:30 14:00 14:40 Temperature Heart Rate 87 58 L 80 Respiratory 17 14 16 Rate Blood Pressure 196/92 H 172/70 H O2 Saturation 94 98 If not protocol 2 2 : Oxygen Flow, liters/minute Oxygen O2 Source Nasal cannula Oxygen Flow Rate 2 - EKG (time done) 10:34 EKG releavant findings:: EKG personally interpreted by author of this note. Relevant findings are: Rate: Rate (enter#) (87) Rhythm: NSR [place]: Normal Intervals: Normal LA QRS: Normal Ischemia: Normal ST segments, Non specific changes (t flattening laterally). No: ST elevation c/w ischemia, ST depression - Labs Labs: Laboratory Tests 11/25/22 11/25/22 11/25/22 10:46 10:46 10:46 WBC 7.2 RBC 4.43 Hgb 13.0 Hct 44.6 MCV 100.7 H MCH 29.3 MCHC 29.1 L RDW 14.7 Plt Count 255 MPV 9.8 Neut # (Auto) 5.0 Lymph # (Auto) 1.4 L [place] # (Auto) 0.6 Eos # (Auto) 0.2 Baso # (Auto) 0.0 Absolute Nucleated RBC 0.00 Nucleated RBC % 0.0 Sodium 144 Potassium 4.5 Chloride 106 Carbon Dioxide 32 Anion Gap 6.0 BUN 16 Creatinine 1.6 H Estimated GFR (MDRD) 32 L Glucose 63 L POC Whole Bld Glucose Calcium 8.4 L Magnesium Total Bilirubin 0.9 AST 24 ALT 24 Alkaline Phosphatase 51 Troponin I High Sens 31.6 H* B-Natriuretic Peptide Total Protein 6.7 Albumin 3.2 Globulin 3.5 Albumin/Globulin Ratio 0.9 L Lipase 44 Nasal Adenovirus (PCR) Nasal B. parapertussis DNA (PCR) Nasal Coronavir 229E PCR Nasal Coronavir HKU1 PCR Nasal Coronavir NL63 PCR Nasal Coronavir OC43 PCR Nasal Enterovir/Rhinovir PCR Nasal Influenza B PCR Nasal Influenza A PCR Nasal Parainfluen 1 PCR Nasal Parainfluen 2 PCR Nasal Parainfluen 3 PCR Nasal Parainfluen 4 PCR Nasal RSV (PCR) Nasal B.pertussis DNA PCR Nasal C.pneumoniae (PCR) Justin Human Metapneumo PCR Nasal M.pneumoniae (PCR) Nasal SARS-CoV-2 (PCR) 11/25/22 11/25/22 11/25/22 10:46 10:46 11:57 WBC RBC Hgb Hct MCV MCH MCHC RDW Plt Count MPV Neut # (Auto) Lymph # (Auto) [place] # (Auto) Eos # (Auto) Baso # (Auto) Absolute Nucleated RBC Nucleated RBC % Sodium Potassium Chloride Carbon Dioxide Anion Gap BUN Creatinine Estimated GFR (MDRD) Glucose POC Whole Bld Glucose 53 L* Calcium Magnesium 1.9 Total Bilirubin AST ALT Alkaline Phosphatase Troponin I High Sens B-Natriuretic Peptide 513 H Total Protein Albumin Globulin Albumin/Globulin Ratio Lipase Nasal Adenovirus (PCR) Nasal B. parapertussis DNA (PCR) Nasal Coronavir 229E PCR Nasal Coronavir HKU1 PCR Nasal Coronavir NL63 PCR Nasal Coronavir OC43 PCR Nasal Enterovir/Rhinovir PCR Nasal Influenza B PCR Nasal Influenza A PCR Nasal Parainfluen 1 PCR Nasal Parainfluen 2 PCR Nasal Parainfluen 3 PCR Nasal Parainfluen 4 PCR Nasal RSV (PCR) Nasal B.pertussis DNA PCR Nasal C.pneumoniae (PCR) Justin Human Metapneumo PCR Nasal M.pneumoniae (PCR) Nasal SARS-CoV-2 (PCR) 11/25/22 13:36 WBC RBC Hgb Hct MCV MCH MCHC RDW Plt Count MPV Neut # (Auto) Lymph # (Auto) [place] # (Auto) Eos # (Auto) Baso # (Auto) Absolute Nucleated RBC Nucleated RBC % Sodium Potassium Chloride Carbon Dioxide Anion Gap BUN Creatinine Estimated GFR (MDRD) Glucose POC Whole Bld Glucose Calcium Magnesium Total Bilirubin AST ALT Alkaline Phosphatase Troponin I High Sens B-Natriuretic Peptide Total Protein Albumin Globulin Albumin/Globulin Ratio Lipase Nasal Adenovirus (PCR) NOT DETECTED Nasal B. parapertussis DNA (PCR) NOT DETECTED Nasal Coronavir 229E PCR NOT DETECTED Nasal Coronavir HKU1 PCR NOT DETECTED Nasal Coronavir NL63 PCR NOT DETECTED Nasal Coronavir OC43 PCR NOT DETECTED Nasal Enterovir/Rhinovir PCR NOT DETECTED Nasal Influenza B PCR NOT DETECTED Nasal Influenza A PCR NOT DETECTED Nasal Parainfluen 1 PCR NOT DETECTED Nasal Parainfluen 2 PCR NOT DETECTED Nasal Parainfluen 3 PCR NOT DETECTED Nasal Parainfluen 4 PCR NOT DETECTED Nasal RSV (PCR) NOT DETECTED Nasal B.pertussis DNA PCR NOT DETECTED Nasal C.pneumoniae (PCR) NOT DETECTED Justin Human Metapneumo PCR NOT DETECTED Nasal M.pneumoniae (PCR) NOT DETECTED Nasal SARS-CoV-2 (PCR) NOT DETECTED - Rads (name of study) chest xray Relevant Findings:: Prelim report reviewed, EMP independent interpretation of test (no infiltrates. Increasd vascular congestion c/w pumonary edema. ), See rad report PD Medical Decision Making - ED course Complexity details: reviewed results, considered differential (It sounds like a combination of an exacerbation of underlying COPD with running out of medicines recently and now a cough with likely upper respiratory infection. However also apparent progressive CHF over a couple of months which is new.), d/w patient, d/w enrollment consultant (I discussed the case with the hospitalist who agreed the patient can be admitted under their service. I discussed the findings and progression of symptoms.) Reviewed Lab Results: Chest x-ray shows interstitial edema consistent with CHF. No infiltrates. CBC was reviewed and showed a normal hemoglobin but slightly elevated white count. Respiratory panel was reviewed and was negative for tested viruses. BNP was ordered and reviewed with the elevation in the 500s. Chemistry panel was revie wed without any significant abnormality. Troponin was slightly elevated at 50. Repeat was not able to be obtained because the particular equipment in the lab broke down for the afternoon Initial blood sugar was low at 53. She did feel generally weak but was still alert. She was given 10% dextrose IVDA for hypoglycemia and also food to eat. Drug Therapy Requiring Monitoring for Toxicity: The patient did receive furosemide IV with subsequent diuresis of 650 mL thus far. She was also given DuoNeb albuterol and ipratropium nebulizer for an element of wheezing. Her breathing felt improved. She was having much decreased work of breathing and her oxygenation was good on nasal cannula. However just walking to the bathroom and back she desaturated to 84% again. It took a couple of minutes to improve back to above 90 on oxygen. ED course: [age]-year-old woman with a history of COPD who is noticed acutely increased wheezing cough and general malaise with poor appetite in the last several days or so. No fevers per se. She has however also noticed 6 to 7 weeks of progressive pedal edema, orthopnea, dyspnea on exertion without any history of heart disease or CHF. She states she was out of her COPD medicines because of refill issues from the pharmacy. She had been on Spiriva, Advair, albuterol. She does not normally use home oxygen. She had been taking her usual insulins and other medicines. She had less appetite the last couple of days. Here she was noted to be hypoxic and she was feeling quite dyspneic at home and on route by EMS. Sats are 80 to 84% on room air. She was given some diuretic of Lasix and had already approximately half a liter of urine output. She was given a DuoNeb as well. Chest x-ray showed CHF pattern without any infiltrates. Exam did show pedal edema as well as crackles at the bases but also expiratory wheezing. Recheck showed her breathing to be improving and she was more comfortable. However she still desatted on room air. We will contact the hospitalist for hospitalization and further work-up. - Critical Care Time(min): 45 Time Includes: Direct patient care, Reassess patient, Document care, Coordinate care, Medical consult Data interpretation: Labs, Pulse ox, CXR Procedures excluded from critical care time: EKG Departure - Departure Disposition: 66 [facility] DC/Xfer Clinical Impression: Congestive heart failure, Moderate COPD (chronic obstructive pulmonary disease), URI (upper respiratory infection), Dyspnea, Hypoxia, Diabetes Condition: Stable Record reviewed to determine appropriate education?: Yes Discharge Date/Time: 11/25/22 15:31
--- NOTE | 2022-11-25 11:14 | XRAY Report ---
PROCEDURE: Chest 1 View X-Ray INDICATIONS: Chest pain TECHNIQUE: One view of the chest was acquired. COMPARISON: None. FINDINGS: Surgical changes and devices: None. Lungs and pleura: Small right pleural effusion; left costophrenic angle is collimated off the field- of-view. Increased pulmonary markings. Mediastinum: Cardiomegaly. Bones and chest wall: No suspicious bony lesions. Overlying soft tissues appear unremarkable. IMPRESSION: 1.Suspect mild interstitial edema, increased pulmonary markings. 2.Small right pleural effusion. Left costophrenic angle is collimated off the [id number]; cannot e xclude effusion. Reviewed by: Charles Alvarado on 11/25/2022 11:12 AM PDT Approved by: Charles Alvarado on 11/25/2022 11:12 AM PDT Station ID: [id number]
[2022-11-25] MEDS ORDERED: FUROSEMIDE 40 MG/4 ML VIAL IVP STA (11:37)
[2022-11-25] MEDS ORDERED: IPRATROPIUM/ALBUTEROL 3 ML NEB INH STA ×2 (11:37→14:18)
[2022-11-25] MEDS ORDERED: DEXTROSE 10% 250 ML IV STA (12:01)
[2022-11-25] MEDS ORDERED: SODIUM CHLORIDE FLUSH 0.9% 10 ML SYRINGE IVP PRN (14:22)
[2022-11-25] MEDS ORDERED: ONDANSETRON 4 MG/2 ML VIAL IVP PRN (14:22)
[2022-11-25] MEDS ORDERED: IPRATROPIUM/ALBUTEROL 3 ML NEB INH PRN (14:30)
--- NOTE | 2022-11-25 14:38 | HISTORY & PHYSICAL EXAMINATION ---
Chief Complaint - Chief Complaint Chief Complaint: SOA, fatigue, URI, cough, not eating History of Present Illness - Admitted From Admitted From:: ED - History Obtained From History obtained from: ED provider and the patient - History of Present Illness HPI Comment/Other: This is a 67-year-old white female with a history of diabetes, stroke that gave her right sided hemianopia in 2020, history of femoropopliteal bypass, hypertension, hyperlipidemia, hypertriglyceridemia, murmur of aortic stenosis and eczema. The patient was hospitalized here over New Year's of 2020 going into 2021 with that stroke. We had no multi care technician available to do the Echo to look for source of embolus or evaluate her aortic stenosis. It is not clear if the patient had that echo over 2021. An Echo was ordered by her PCP 1 month ago and it is scheduled to be done next month, Dec 2022. Patient came to the ER today complaining of shortness of breath and admits she ran out of her inhaler for over a week (she took Advair, Spiriva and Albuterol). She also has had a URI and a cough without sputum production, fatigue and red eyes with crusting of both eyes. She denied a fever, nausea, vomiting or diarrhea. She has not had any flu shots and any COVID shots. She does say that her shortness of breath has been developing over the past 6 to 8 weeks along with new pedal edema and orthopnea. (Presumably that is why the Echo was ordered by FRANCISCO Jackson as an outpatient, and is still pending to be done in December). In the ER, the patient was found to have a glucose of 65 and admitted that she was "not eating anything for 2 days because she felt ill". She was given D10 and did start eating. She also had an O2 saturation of 80% on room air at presentation. Her chest x-ray showed CHF. Her first troponin is 53 (and the troponin machine then broke and will not be functional for 3 hours). The BNP and Resp panel are pending. She was put on supplemental oxygen, given a DuoNeb treatment and IV Lasix. She has already diuresed half a liter, per the ED provider. The EKG is similar to the one from 2 years ago. The ED provider reached out to me on the Hospitalist team and we discussed her case. The patient will be admitted for acute respiratory failure with hypoxia from CHF and COPD, and a probable viral syndrome causing her to be anorexic, which led to hypoglycemia in a diabetic. I asked her what her wishes are for CODE STATUS and she wants to be a DNR/DNI. She says she just made her son Dung Head her DPOA (his work number: [phone]). History - Past Medical History Cardiovascular: reports: Hypertension, High cholesterol, Murmur Respiratory: reports: COPD, Shortness of breath Neuro: reports: CVA Endocrine/Autoimmune: reports: Type 2 diabetes Derm: reports: Other - Past Surgical History General: reports: Other Cardiovascular: reports: Fempop bypass - Family & Social History Family History: Mother: , Father: Family History Comment/Other: Her mother from esophageal cancer. She has 1 brother with a history of coronary artery disease. She is unaware of her father's medical history, because he was a army man that impregnated her [place] mother then left them. The pt was born in [facility] and came here as a child. Living arrangement: At home Living Situation: With spouse/s.o. Social History Notes: She and her have a caregiver that comes daily and cares for them both, for the past 1 year. She smoked a pack a day for 30 years but quit about 20 years ago. She rarely drinks alcohol. - Substance History Use: Uses substance without health or social issues: NONE Meds/Allgy - Home Medications Home Medications: Ambulatory Orders Medication Instructions Recorded Confirmed Fexofenadine HCl [Jessica Allergy] 180 mg PO DAILY 10/19/19 11/25/22 Insulin Lispro [Humalog Kwikpen 30 unit SUBQ QID 10/19/19 11/25/22 U-100] Insulin NPH Human Isophane 29 - 46 unit SUBQ BID 10/19/19 11/25/22 [Humulin N] Aspirin Chewable [[facility] [place] Luis 81 mg PO DAILY #30 tablet 09/11/21 11/25/22 Aspirin] Clopidogrel [Plavix] 75 mg PO DAILY #30 tablet 09/11/21 11/25/22 Fenofibrate Nanocrystallized 48 mg PO DAILY #30 tablet 09/11/21 11/25/22 [Fenofibrate] Hydralazine HCl 1 tab PO QID 11/25/22 11/25/22 Losartan [Cozaar] 1 tab PO BID 11/25/22 11/25/22 NIFEdipine [Procardia Xl] 1 tab PO DAILY 11/25/22 11/25/22 Pregabalin [Lyrica] 1 cap ORAL QPM 11/25/22 11/25/22 - Allergies Allergies/Adverse Reactions: Allergies Allergy/AdvReac Type Severity Reaction Status Date / Time lisinopril AdvReac Mild Respiratory Verified 11/25/22 16:25 Review of Systems - Constitutional Constitutional: reports: Fatigue, Weakness, Poor appetite - Cardiovascular Cariovascular: reports: Chest pain (Fleeting CP, over the past 1 month), Edema, Exertional dyspnea - Respiratory Respiratory: reports: Orthopnea, SOB with exertion - Neurological Neurological: reports: Other (R peripheral vision loss after the stroke) - All Other Systems All Other Systems: reports: Reviewed and negative Exam - Vital Signs Reviewed Vital Signs: Yes Vital Signs: Vital Signs x48h Temp Pulse Resp BP Pulse Ox O2 Flow Rate 11/25/22 14:00 58 L 14 172/70 H 98 2 11/25/22 13:30 87 17 196/92 H 94 11/25/22 13:00 90 16 200/60 H 98 2 11/25/22 12:21 88 16 2 11/25/22 11:00 83 19 172/73 H 92 2 11/25/22 10:49 95 2 11/25/22 10:45 80 L 11/25/22 10:23 36.7 C 88 20 150/55 H 85 L - Physical Exam General Appearance: positive: No acute distress, Alert Eyes Bilateral: positive: Normal inspection, EOMI ENT: positive: ENT inspection nml Neck: positive: Nml inspection, No JVD Respiratory: positive: Rales, Other (diminished at both bases posteriorly, no wheezing) Cardiovascular: positive: Regular rate & rhythm, Systolic murmur (harsh, 3/6 sytolic murmur over aortic area) Abdomen: positive: Non-tender, Other (Obese with a pannus) Skin: positive: Warm, Dry, Other (Elephant skin of her palms, scaly dry skin of her fingers) Extremities: positive: Other (1-2+ edema to below knees) Neurologic/Psychiatric: positive: Oriented x3, Motor nml, Other (R peripheral field vision loss) Comments/Other: Attestation: The patient is expected to be discharged or transferred to another facility within 96 hours: Yes. Conclusion/Plan - Problem List (1) Acute respiratory failure with hypoxia Conclusion/Plan: This is probably related to the COPD exacerbation from running out of her inhalers on top of worsening, new onset CHF which has been developing for 6 to 8 weeks. Plan: Provide supplemental O2. Treat the underlying conditions We will titrate down as tolerated keeping saturations over 90% and a COPD earlier Patient will need an oximetry walk test on the day of discharge (2) New onset of congestive heart failure Conclusion/Plan: The patient has a history of PVD therefore could have CAD as cause of CHF. She has had a longstanding heart murmur and unknown if the AAS has become significant now. She also has hypertension on admission here, may have had an exacerbation from poorly controlled BP Plan: Start IV twice daily Lasix A low-salt, cardiac, low chol diet will be ordered Follow I's and O's, daily weights Obtain an echocardiogram Placed on telemetry to rule out tachy-dysrhythmias Follow BMP daily (3) COPD with exacerbation Conclusion/Plan: This is probably from running out of her medications on top of having a viral syndrome Plan: Begin DuoNebs 4 times daily scheduled and as needed every 4 hours Begin Pulmicort twice daily Since she has no evidence of a bacterial infection (no cough, no infiltrate on chest x-ray), will not start empiric antibiotics Start IV steroids Give supplemental O2, saturation goal is 90% or higher in a COPDer (4) Hypoglycemia Conclusion/Plan: This is probably related to poor p.o. intake that she admitted to, over the last 48 hours, when she may have been continuing her diabetic treatment Plan: We will put the patient on a diabetic diet Start fingerstick checks ACHS, hypoglycemia protocol, sliding scale insulin We will not start her long-acting insulin yet Check her A1c (5) DM type 2 (diabetes mellitus, type 2) Conclusion/Plan: According to er (old) medication list, she did take insulin Plan: We will put the patient on a diabetic diet Start fingerstick checks ACHS, hypoglycemia protocol, sliding scale insulin Will not start her long-acting insulin yet, because of the severe hypoglycemia she had this morning Check her A1c (6) Hypertension Conclusion/Plan: In the ER, the patient's blood pressures have been 172/70, 196/92. Unknown if she is not compliant with blood pressure meds or if this is related to volume and salt overload or from distress Plan: We will resume her BP meds, once the list is reconciled by pharmacy Starting Lasix IV twice daily will help this blood pressure A low-salt diet has been ordered We will add hydralazine IV as needed, given the elevated creatinine (7) PVD (peripheral vascular disease) Conclusion/Plan: The patient has a remote history of a femoropopliteal bypass. When she is here in 2020, we found moderate carotid disease and follow-up with vascular and neurology had been recommended then Plan: We will continue her antiplatelet agents, once the medication list is reconciled She needs good glucose control, blood pressure control and cholesterol control (8) CKD (chronic kidney disease) Conclusion/Plan: In reviewing her [facility] records which I did, going back to 2019, she always runs creatinine levels of 1.2-1.6. Plan: Avoid nephrotoxins. Follow BMP daily (9) Murmur Conclusion/Plan: On exam, she has a harsh systolic murmur loudest in the aortic area therefore this is presumably AAS. There are no old Echoes in her medical record, which I searched, except 10 years ago Plan: Obtain full Echo with Doppler Because she did not have the "bubble study" done when she was here in 2020 to look for a PFO as the cause of stroke then, will also add Bubble Study to this Echo ordered (10) Hypertriglyceridemia Conclusion/Plan: When she was here with a stroke in 2020, her fasting lipid levels showed a total cholesterol of 243, LDL of 145 and triglyceride level of 326. She was to be taking a statin and fenofibrate. Plan: We will continue her cholesterol and triglyceride meds, once her medication list is reconciled by pharmacy (11) Conjunctivitis Conclusion/Plan: Plan: We will order topical treatment for this and order contact isolation Qualifiers: Conjunctivitis type: acute - Lab Results Fish Bones: 11/25/22 10:46 11/25/22 10:46 - Diagnostic Imaging Results Diagnostic Imaging Results: positive: Final report reviewed - Other Other Results/Comments: Attestation: The patient is expected to be discharged or transferred to another facility within 96 hours: Yes.
[2022-11-25 14:53] LABS: B. PARAPERTUSSIS- RESP PCR PAN NOT DETECTED; B. PERTUSSIS- RESP PCR PANEL NOT DETECTED; C. PNEUMONIAE- RESP PCR PANEL NOT DETECTED; CORONAVIRUS 229E-RESP PCR NOT DETECTED; CORONAVIRUS HKU1-RESP PCR NOT DETECTED; CORONAVIRUS NL63-RESP PCR NOT DETECTED; CORONAVIRUS OC43-RESP PCR NOT DETECTED; HUMAN METAPNEUMOVIRUS NOT DETECTED; INFLUENZA A- RESP PCR PANEL NOT DETECTED; INFLUENZA B - RESP PCR PANEL NOT DETECTED; M. PNEUMONIAE- RESP PCR PANEL NOT DETECTED; PARAINFLUENZA VIRUS 1 NOT DETECTED; PARAINFLUENZA VIRUS 2 NOT DETECTED; PARAINFLUENZA VIRUS 3 NOT DETECTED; PARAINFLUENZA VIRUS 4 NOT DETECTED; RHINOVIRUS/ENTEROVIRUS NOT DETECTED; RSV- RESP PCR PANEL NOT DETECTED; SARS-CoV-2 -RESP PCR PANEL NOT DETECTED
--- NOTE | 2022-11-25 16:22 | PHARMACY PROGRESS NOTE ---
- Best Possible Medication History Admit Date and Time: 11/25/22 1447 Processed by: Pharmacy Medication History completed: Yes Patient Interview: Completed Secondary Source(s): Physician records (Pt is slightly confused. Gets meds mainly at [facility] mail order.), Pharmacy records As the person ultimately responsible for medication therapy, providers are able to order a medication from an existing home medication list in [facility] via the "Reconcile Routine" prior to Confirmation of that medication by clerical and office support workers. Such practice is discouraged except when the physician, in their clinical judgment, deems that a medical need exists for a medication without regard to previous use.
[2022-11-25] MEDS: INSULIN LISPRO 300 UNIT/3 ML PEN SUBQ SCH ×2 (17:02→20:48)
[2022-11-25] MEDS: SODIUM CHLORIDE FLUSH 0.9% 10 ML SYRINGE IVP SCH (17:04)
[2022-11-25] MEDS ORDERED: MAGNESIUM SULFATE 2 GRAM 2 GM/50 ML BAG IV ONE (18:28)
[2022-11-25] MEDS: hydrALAZINE 25 MG TABLET PO SCH (20:46)
[2022-11-25] MEDS: LOSARTAN 50 MG TABLET PO SCH (20:47)
[2022-11-25] MEDS: PREGABALIN 25 MG CAPSULE PO SCH (20:47)
[2022-11-25] MEDS: MONTELUKAST 10 MG TABLET PO SCH (20:48)
[2022-11-25] MEDS: OFLOXACIN 0.3% OPHTH DROPS EACHEYE SCH (22:31)
[2022-11-26] MEDS: SODIUM CHLORIDE FLUSH 0.9% 10 ML SYRINGE IVP SCH ×3 (01:00→17:08)
[2022-11-26] MEDS: ACETAMINOPHEN 325 MG TABLET PO PRN ×2 (01:01→21:35)
[2022-11-26] MEDS: IPRATROPIUM/ALBUTEROL 3 ML NEB INH SCH ×6 (04:44→19:34)
[2022-11-26] MEDS: BUDESONIDE 0.5 MG/2 ML NEB INH SCH ×3 (04:44→19:35)
[2022-11-26] MEDS: FUROSEMIDE 20 MG/2 ML VIAL IVP SCH ×2 (06:04→14:03)
[2022-11-26 06:17] LABS: BASOPHILS # (AUTO) 0.1 10^3/uL (0.0-0.1); BASOPHILS % (AUTO) 0.9 %; EOSINOPHILS # (AUTO) 0.2 10^3/uL (0.0-0.7); EOSINOPHILS % (AUTO) 3.3 %; HCT - HEMATOCRIT 45.1 % (37.0-47.0); HGB - HEMOGLOBIN 13.1 g/dL (12.0-16.0); LYMPHOCYTES # (AUTO) 1.2 10^3/uL (1.5-3.5); LYMPHOCYTES % (AUTO) 18.2 %; MEAN PLATELET VOLUME 10.4 fL (7.9-10.8); MONOCYTES # (AUTO) 0.6 10^3/uL (0.0-1.0); MONOCYTES % (AUTO) 9.7 %; NEUTROPHILS # (AUTO) 4.3 10^3/uL (1.5-6.6); NEUTROPHILS % (AUTO) 67.7 %; PLT - PLATELET COUNT 266 10^3/uL (130-450); RED BLOOD COUNT 4.51 10^6/uL (4.20-5.40); RED CELL DISTRIBUTION WIDTH 14.6 % (12.0-15.0); WHITE BLOOD COUNT 6.4 x10^3/uL (4.8-10.8)
[2022-11-26 06:26] LABS: CALCIUM 8.1 mg/dL (8.5-10.3); CREATININE 1.5 mg/dL (0.4-1.0); MAGNESIUM 2.4 mg/dL (1.7-2.8); POTASSIUM 4.2 mmol/L (3.5-5.0)
--- NOTE | 2022-11-26 09:12 | PROVIDER PROGRESS NOTE ---
Subjective - Prog Note Date Prog Note Date: 11/26/22 Prog Note Time: 11:30 - Subjective Pt reports feeling: Improved (decreasing oxygen requirement on 1L NC. tolerating oral intake.) Subjective: Pt states she is feeling "good" , only has some difficulty walking at this time. Current Medications - Current Medications Current Medications: Active Medications Generic Name Dose Route Start Last Admin Trade Name Freq PRN Reason Stop Dose Admin Acetaminophen 650 mg 11/25/22 14:22 11/26/22 01:01 Acetaminophen 325 Mg Tablet PO 650 mg Q4HR PRN Administration Pain 1 to 4, or Fever Albuterol/Ipratropium 3 ml 11/25/22 15:00 11/26/22 11:08 Ipratropium/Albuterol 3 Ml Neb INH 3 ml RTQID CANDICE Administration Albuterol/Ipratropium 3 ml 11/25/22 14:30 Ipratropium/Albuterol 3 Ml Neb INH Q4HR PRN Wheezing Aspirin 81 mg 11/26/22 09:00 11/26/22 09:28 Aspirin Chew 81 Mg Tablet PO 81 mg DAILY CANDICE Administration Budesonide 0.5 mg 11/25/22 19:00 11/26/22 08:26 Budesonide 0.5 Mg/2 Ml Neb INH 0.5 mg RTBID CANDICE Administration Clopidogrel Bisulfate 75 mg 11/26/22 09:00 11/26/22 09:27 Clopidogrel 75 Mg Tablet PO 75 mg DAILY CANDICE Administration Enoxaparin Sodium 40 mg 11/26/22 09:00 11/26/22 09:28 Enoxaparin 40 Mg/0.4 Ml Syringe SUBQ 40 mg DAILY CANDICE Administration Fenofibrate 48 mg 11/26/22 09:00 11/26/22 09:28 Fenofibrate 48 Mg Tablet PO 48 mg DAILY CANDICE Administration Furosemide 20 mg 11/26/22 06:00 11/26/22 06:04 Furosemide 20 Mg/2 Ml Vial IVP 20 mg BIDDIURETIC CANDICE Administration Hydralazine HCl 100 mg 11/25/22 21:00 11/26/22 09:29 Hydralazine 25 Mg Tablet PO 100 mg QID CANDICE Administration Insulin Human Lispro 1 - 5 unit 11/25/22 17:00 11/26/22 09:26 Insulin Lispro 300 Unit/3 Ml Pen SUBQ Not Given 0800,1200,1700,2100 [facility] Protocol Loratadine 10 mg 11/26/22 09:00 11/26/22 09:29 Loratadine 10 Mg Tablet PO 10 mg DAILY CANDICE Administration Losartan Potassium 50 mg 11/25/22 21:00 11/26/22 10:13 Losartan 50 Mg Tablet PO 50 mg BID CANDICE Administration Montelukast Sodium 10 mg 11/25/22 21:00 11/25/22 20:48 Montelukast 10 Mg Tablet PO 10 mg QPM CANDICE Administration Nifedipine 30 mg 11/26/22 09:00 11/26/22 09:29 Nifedipine Er 30 Mg Tablet PO 30 mg DAILY [facility] Administration Ofloxacin 2 drops 11/25/22 22:00 11/26/22 09:29 Ofloxacin 0.3% Ophth Drops EACHEYE 2 drops QID CANDICE Administration Ondansetron HCl 4 mg 11/25/22 14:22 Ondansetron 4 Mg/2 Ml Vial IVP Q6HR PRN Nausea / Vomiting Pregabalin 25 mg 11/25/22 21:00 11/25/22 20:47 Pregabalin 25 Mg Capsule PO 25 mg QPM CANDICE Administration Sodium Chloride 10 ml 11/25/22 14:22 Sodium Chloride Flush 0.9% 10 Ml Syringe IVP PRN PRN NEEDED PER PROVIDER ORDERS Sodium Chloride 10 ml 11/25/22 17:00 11/26/22 06:04 Sodium Chloride Flush 0.9% 10 Ml Syringe IVP 10 ml 0100,0900,1700 CANDICE Administration Fexofenadine HCl [Jessica Allergy] 180 mg PO DAILY 10/19/19 Insulin Lispro [Humalog Kwikpen U-100] 30 unit SUBQ QID 10/19/19 Insulin NPH Human Isophane [Humulin N] 29 - 46 unit SUBQ BID 10/19/19 Hydralazine HCl 1 tab PO QID 11/25/22 Losartan [Cozaar] 1 tab PO BID 11/25/22 NIFEdipine [Procardia Xl] 1 tab PO DAILY 11/25/22 Pregabalin [Lyrica] 1 cap ORAL QPM 11/25/22 Objective - Vital Signs/Intake & Output Vital Signs: Vital Signs x48h Temp Pulse Pulse Resp BP Pulse Ox O2 Flow Rate 11/26/22 08:27 84 18 1 11/26/22 08:10 94 1 11/26/22 08:05 21 84 L 11/26/22 07:47 36.8 C 80 18 167/63 H 94 2 11/26/22 04:30 36.4 C L 81 18 161/51 H 92 2 Intake & Output: Intake & Output 11/23/22 11/24/22 11/25/22 11/26/22 22:59 23:59 23:59 23:59 Intake Total 890 Output Total 325 600 Balance 565 -600 - Objective General Appearance: positive: No acute distress, Alert Eyes Bilateral: positive: Other (Yellow crusting bilaterally) Respiratory: positive: Other (Diminished breath sounds) Cardiovascular: positive: Regular rate & rhythm Peripheral Pulses: 2+ Radial (R), 2+ Radial (L) Skin: positive: Warm, Dry Extremities: positive: Other (edema bilaterally) Neurologic/Psychiatric: positive: Oriented x3 - Lab Results Fish Bones: 11/26/22 05:22 11/26/22 05:22 Other Labs: Lab Results x24hrs 11/26/22 11/26/22 11/26/22 Range/Units 07:46 05:22 05:22 WBC (4.8-10.8) x10^3/uL RBC (4.20-5.40) 10^6/uL Hgb (12.0-16.0) g/dL Hct (37.0-47.0) % MCV (81.0-99.0) fL MCH (27.0-31.0) pg MCHC (32.0-36.0) g/dL RDW (12.0-15.0) % Plt Count (130-450) 10^3/uL MPV (7.9-10.8) fL Neut # (Auto) (1.5-6.6) 10^3/uL Lymph # (Auto) (1.5-3.5) 10^3/uL Daniels # (Auto) (0.0-1.0) 10^3/uL Eos # (Auto) (0.0-0.7) 10^3/uL Baso # (Auto) (0.0-0.1) 10^3/uL Absolute Nucleated RBC x10^3/uL Nucleated RBC % /100WBC Sodium 139 (135-145) mmol/L Potassium 4.2 (3.5-5.0) mmol/L Chloride 99 L (101-111) mmol/L Carbon Dioxide 33 H (21-32) mmol/L Anion Gap 7.0 (6-13) BUN 17 (6-20) mg/dL Creatinine 1.5 H (0.4-1.0) mg/dL Estimated GFR (MDRD) 35 L (>89) Glucose 105 H (70-100) mg/dL POC Whole Bld Glucose 96 (70 - 100) mg/dL Calcium 8.1 L (8.5-10.3) mg/dL Magnesium 2.4 (1.7-2.8) mg/dL Total Bilirubin (0.2-1.0) mg/dL AST (10-42) IU/L ALT (10-60) IU/L Alkaline Phosphatase (42-121) IU/L Troponin I High Sens (2.3-14.8) ng/L B-Natriuretic Peptide 556 H (5-100) pg/mL Total Protein (6.7-8.2) g/dL Albumin (3.2-5.5) g/dL Globulin (2.1-4.2) g/dL Albumin/Globulin Ratio (1.0-2.2) Lipase (22-51) U/L Nasal Adenovirus (PCR) Nasal B. parapertussis DNA (PCR) Nasal Coronavir 229E PCR Nasal Coronavir HKU1 PCR Nasal Coronavir NL63 PCR Nasal Coronavir OC43 PCR Nasal Enterovir/Rhinovir PCR Nasal Influenza B PCR Nasal Influenza A PCR Nasal Parainfluen 1 PCR Nasal Parainfluen 2 PCR Nasal Parainfluen 3 PCR Nasal Parainfluen 4 PCR Nasal RSV (PCR) Nasal B.pertussis DNA PCR Nasal C.pneumoniae (PCR) Justin Human Metapneumo PCR Nasal M.pneumoniae (PCR) Nasal SARS-CoV-2 (PCR) 11/26/22 11/25/22 11/25/22 Range/Units 05:22 20:41 17:00 WBC 6.4 (4.8-10.8) x10^3/uL RBC 4.51 (4.20-5.40) 10^6/uL Hgb 13.1 (12.0-16.0) g/dL Hct 45.1 (37.0-47.0) % MCV 100.0 H (81.0-99.0) fL MCH 29.0 (27.0-31.0) pg MCHC 29.0 L (32.0-36.0) g/dL RDW 14.6 (12.0-15.0) % Plt Count 266 (130-450) 10^3/uL MPV 10.4 (7.9-10.8) fL Neut # (Auto) 4.3 (1.5-6.6) 10^3/uL Lymph # (Auto) 1.2 L (1.5-3.5) 10^3/uL Daniels # (Auto) 0.6 (0.0-1.0) 10^3/uL Eos # (Auto) 0.2 (0.0-0.7) 10^3/uL Baso # (Auto) 0.1 (0.0-0.1) 10^3/uL Absolute Nucleated RBC 0.00 x10^3/uL Nucleated RBC % 0.0 /100WBC Sodium (135-145) mmol/L Potassium (3.5-5.0) mmol/L Chloride (101-111) mmol/L Carbon Dioxide (21-32) mmol/L Anion Gap (6-13) BUN (6-20) mg/dL Creatinine (0.4-1.0) mg/dL Estimated GFR (MDRD) (>89) Glucose (70-100) mg/dL POC Whole Bld Glucose 116 H (70 - 100) mg/dL Calcium (8.5-10.3) mg/dL Magnesium (1.7-2.8) mg/dL Total Bilirubin (0.2-1.0) mg/dL AST (10-42) IU/L ALT (10-60) IU/L Alkaline Phosphatase (42-121) IU/L Troponin I High Sens 34.1 H* (2.3-14.8) ng/L B-Natriuretic Peptide (5-100) pg/mL Total Protein (6.7-8.2) g/dL Albumin (3.2-5.5) g/dL Globulin (2.1-4.2) g/dL Albumin/Globulin Ratio (1.0-2.2) Lipase (22-51) U/L Nasal Adenovirus (PCR) Nasal B. parapertussis DNA (PCR) Nasal Coronavir 229E PCR Nasal Coronavir HKU1 PCR Nasal Coronavir NL63 PCR Nasal Coronavir OC43 PCR Nasal Enterovir/Rhinovir PCR Nasal Influenza B PCR Nasal Influenza A PCR Nasal Parainfluen 1 PCR Nasal Parainfluen 2 PCR Nasal Parainfluen 3 PCR Nasal Parainfluen 4 PCR Nasal RSV (PCR) Nasal B.pertussis DNA PCR Nasal C.pneumoniae (PCR) Justin Human Metapneumo PCR Nasal M.pneumoniae (PCR) Nasal SARS-CoV-2 (PCR) 11/25/22 11/25/22 11/25/22 Range/Units 16:25 14:50 13:36 WBC (4.8-10.8) x10^3/uL RBC (4.20-5.40) 10^6/uL Hgb (12.0-16.0) g/dL Hct (37.0-47.0) % MCV (81.0-99.0) fL MCH (27.0-31.0) pg MCHC (32.0-36.0) g/dL RDW (12.0-15.0) % Plt Count (130-450) 10^3/uL MPV (7.9-10.8) fL Neut # (Auto) (1.5-6.6) 10^3/uL Lymph # (Auto) (1.5-3.5) 10^3/uL Daniels # (Auto) (0.0-1.0) 10^3/uL Eos # (Auto) (0.0-0.7) 10^3/uL Baso # (Auto) (0.0-0.1) 10^3/uL Absolute Nucleated RBC x10^3/uL Nucleated RBC % /100WBC Sodium (135-145) mmol/L Potassium (3.5-5.0) mmol/L Chloride (101-111) mmol/L Carbon Dioxide (21-32) mmol/L Anion Gap (6-13) BUN (6-20) mg/dL Creatinine (0.4-1.0) mg/dL Estimated GFR (MDRD) (>89) Glucose (70-100) mg/dL POC Whole Bld Glucose 152 H 187 H (70 - 100) mg/dL Calcium (8.5-10.3) mg/dL Magnesium (1.7-2.8) mg/dL Total Bilirubin (0.2-1.0) mg/dL AST (10-42) IU/L ALT (10-60) IU/L Alkaline Phosphatase (42-121) IU/L Troponin I High Sens (2.3-14.8) ng/L B-Natriuretic Peptide (5-100) pg/mL Total Protein (6.7-8.2) g/dL Albumin (3.2-5.5) g/dL Globulin (2.1-4.2) g/dL Albumin/Globulin Ratio (1.0-2.2) Lipase (22-51) U/L Nasal Adenovirus (PCR) NOT DETECTED Nasal B. parapertussis DNA (PCR) NOT DETECTED Nasal Coronavir 229E PCR NOT DETECTED Nasal Coronavir HKU1 PCR NOT DETECTED Nasal Coronavir NL63 PCR NOT DETECTED Nasal Coronavir OC43 PCR NOT DETECTED Nasal Enterovir/Rhinovir PCR NOT DETECTED Nasal Influenza B PCR NOT DETECTED Nasal Influenza A PCR NOT DETECTED Nasal Parainfluen 1 PCR NOT DETECTED Nasal Parainfluen 2 PCR NOT DETECTED Nasal Parainfluen 3 PCR NOT DETECTED Nasal Parainfluen 4 PCR NOT DETECTED Nasal RSV (PCR) NOT DETECTED Nasal B.pertussis DNA PCR NOT DETECTED Nasal C.pneumoniae (PCR) NOT DETECTED Justin Human Metapneumo PCR NOT DETECTED Nasal M.pneumoniae (PCR) NOT DETECTED Nasal SARS-CoV-2 (PCR) NOT DETECTED 11/25/22 11/25/22 11/25/22 Range/Units 11:57 10:46 10:46 WBC (4.8-10.8) x10^3/uL RBC (4.20-5.40) 10^6/uL Hgb (12.0-16.0) g/dL Hct (37.0-47.0) % MCV (81.0-99.0) fL MCH (27.0-31.0) pg MCHC (32.0-36.0) g/dL RDW (12.0-15.0) % Plt Count (130-450) 10^3/uL MPV (7.9-10.8) fL Neut # (Auto) (1.5-6.6) 10^3/uL Lymph # (Auto) (1.5-3.5) 10^3/uL Daniels # (Auto) (0.0-1.0) 10^3/uL Eos # (Auto) (0.0-0.7) 10^3/uL Baso # (Auto) (0.0-0.1) 10^3/uL Absolute Nucleated RBC x10^3/uL Nucleated RBC % /100WBC Sodium (135-145) mmol/L Potassium (3.5-5.0) mmol/L Chloride (101-111) mmol/L Carbon Dioxide (21-32) mmol/L Anion Gap (6-13) BUN (6-20) mg/dL Creatinine (0.4-1.0) mg/dL Estimated GFR (MDRD) (>89) Glucose (70-100) mg/dL POC Whole Bld Glucose 53 L* (70 - 100) mg/dL Calcium (8.5-10.3) mg/dL Magnesium 1.9 (1.7-2.8) mg/dL Total Bilirubin (0.2-1.0) mg/dL AST (10-42) IU/L ALT (10-60) IU/L Alkaline Phosphatase (42-121) IU/L Troponin I High Sens (2.3-14.8) ng/L B-Natriuretic Peptide 513 H (5-100) pg/mL Total Protein (6.7-8.2) g/dL Albumin (3.2-5.5) g/dL Globulin (2.1-4.2) g/dL Albumin/Globulin Ratio (1.0-2.2) Lipase (22-51) U/L Nasal Adenovirus (PCR) Nasal B. parapertussis DNA (PCR) Nasal Coronavir 229E PCR Nasal Coronavir HKU1 PCR Nasal Coronavir NL63 PCR Nasal Coronavir OC43 PCR Nasal Enterovir/Rhinovir PCR Nasal Influenza B PCR Nasal Influenza A PCR Nasal Parainfluen 1 PCR Nasal Parainfluen 2 PCR Nasal Parainfluen 3 PCR Nasal Parainfluen 4 PCR Nasal RSV (PCR) Nasal B.pertussis DNA PCR Nasal C.pneumoniae (PCR) Justin Human Metapneumo PCR Nasal M.pneumoniae (PCR) Nasal SARS-CoV-2 (PCR) 11/25/22 11/25/22 11/25/22 Range/Units 10:46 10:46 10:46 WBC 7.2 (4.8-10.8) x10^3/uL RBC 4.43 (4.20-5.40) 10^6/uL Hgb 13.0 (12.0-16.0) g/dL Hct 44.6 (37.0-47.0) % MCV 100.7 H (81.0-99.0) fL MCH 29.3 (27.0-31.0) pg MCHC 29.1 L (32.0-36.0) g/dL RDW 14.7 (12.0-15.0) % Plt Count 255 (130-450) 10^3/uL MPV 9.8 (7.9-10.8) fL Neut # (Auto) 5.0 (1.5-6.6) 10^3/uL Lymph # (Auto) 1.4 L (1.5-3.5) 10^3/uL Daniels # (Auto) 0.6 (0.0-1.0) 10^3/uL Eos # (Auto) 0.2 (0.0-0.7) 10^3/uL Baso # (Auto) 0.0 (0.0-0.1) 10^3/uL Absolute Nucleated RBC 0.00 x10^3/uL Nucleated RBC % 0.0 /100WBC Sodium 144 (135-145) mmol/L Potassium 4.5 (3.5-5.0) mmol/L Chloride 106 (101-111) mmol/L Carbon Dioxide 32 (21-32) mmol/L Anion Gap 6.0 (6-13) BUN 16 (6-20) mg/dL Creatinine 1.6 H (0.4-1.0) mg/dL Estimated GFR (MDRD) 32 L (>89) Glucose 63 L (70-100) mg/dL POC Whole Bld Glucose (70 - 100) mg/dL Calcium 8.4 L (8.5-10.3) mg/dL Magnesium (1.7-2.8) mg/dL Total Bilirubin 0.9 (0.2-1.0) mg/dL AST 24 (10-42) IU/L ALT 24 (10-60) IU/L Alkaline Phosphatase 51 (42-121) IU/L Troponin I High Sens 31.6 H* (2.3-14.8) ng/L B-Natriuretic Peptide (5-100) pg/mL Total Protein 6.7 (6.7-8.2) g/dL Albumin 3.2 (3.2-5.5) g/dL Globulin 3.5 (2.1-4.2) g/dL Albumin/Globulin Ratio 0.9 L (1.0-2.2) Lipase 44 (22-51) U/L Nasal Adenovirus (PCR) Nasal B. parapertussis DNA (PCR) Nasal Coronavir 229E PCR Nasal Coronavir HKU1 PCR Nasal Coronavir NL63 PCR Nasal Coronavir OC43 PCR Nasal Enterovir/Rhinovir PCR Nasal Influenza B PCR Nasal Influenza A PCR Nasal Parainfluen 1 PCR Nasal Parainfluen 2 PCR Nasal Parainfluen 3 PCR Nasal Parainfluen 4 PCR Nasal RSV (PCR) Nasal B.pertussis DNA PCR Nasal C.pneumoniae (PCR) Justin Human Metapneumo PCR Nasal M.pneumoniae (PCR) Nasal SARS-CoV-2 (PCR) ABX Reporting Has patient been on IV antibiotics over the past 48 hours?: No Assessment/Plan - Problem List (1) Acute respiratory failure with hypoxia Impression: Suspected COPD exacerbation from running out of her inhalers on top of worsening, new onset CHF which has been developing for 6 to 8 weeks. Status: improving Plan: Provide supplemental O2, we will titrate down as tolerated keeping saturations over 90% and a COPD earlier Treat the underlying conditions Patient will need an oximetry walk test on the day of discharge (2) New onset of congestive heart failure Impression: The patient has a history of PVD therefore could have CAD as cause of CHF. She has had a longstanding heart murmur and unknown if the has become significant now. She also has hypertension on admission here, may have had an exacerbation from poorly controlled BP Status: stable, no events on tele Plan: Continue lasix IV BID A low-salt, cardiac, low chol diet Follow I's and O's, daily weights Obtain an echocardiogram Continue telemetry to rule out tachy-dysrhythmias Follow BMP daily (3) COPD with exacerbation Impression: This is probably from running out of her medications on top of having a viral syndrome. CXR without infiltrates on exam and don't suspect PNA. DuoNebs 4 times daily scheduled and as needed every 4 hours Continue Pulmicort twice daily IV steroids, transition to oral tomorrow (4) Conjunctivitis Impression: On Ofloxacin eye drops Qualifiers: Conjunctivitis type: acute
[2022-11-26] MEDS: INSULIN LISPRO 300 UNIT/3 ML PEN SUBQ SCH ×4 (09:26→21:34)
[2022-11-26] MEDS: CLOPIDOGREL 75 MG TABLET PO SCH (09:27)
[2022-11-26] MEDS: ASPIRIN CHEW 81 MG TABLET PO SCH (09:28)
[2022-11-26] MEDS: FENOFIBRATE 48 MG TABLET PO SCH (09:28)
[2022-11-26] MEDS: ENOXAPARIN 40 MG/0.4 ML SYRINGE SUBQ SCH (09:28)
[2022-11-26] MEDS: hydrALAZINE 25 MG TABLET PO SCH ×4 (09:29→21:34)
[2022-11-26] MEDS: LORATADINE 10 MG TABLET PO SCH (09:29)
[2022-11-26] MEDS: OFLOXACIN 0.3% OPHTH DROPS EACHEYE SCH ×4 (09:29→21:36)
[2022-11-26] MEDS: NIFEdipine ER 30 MG TABLET PO SCH (09:29)
[2022-11-26] MEDS: LOSARTAN 50 MG TABLET PO SCH ×2 (10:13→21:35)
[2022-11-26 11:07] LABS: ESTIMATED AVERAGE GLUCOSE 120 mg/dL (70-100); HEMOGLOBIN A1c% 5.8 % (4.27-6.07)
[2022-11-26] MEDS: PREGABALIN 25 MG CAPSULE PO SCH (21:35)
[2022-11-26] MEDS: MONTELUKAST 10 MG TABLET PO SCH (21:35)
[2022-11-27] MEDS: SODIUM CHLORIDE FLUSH 0.9% 10 ML SYRINGE IVP SCH ×2 (00:21→08:43)
[2022-11-27 05:23] LABS: BASOPHILS % (AUTO) 0.6 %; EOSINOPHILS # (AUTO) 0.2 10^3/uL (0.0-0.7); EOSINOPHILS % (AUTO) 2.3 %; HCT - HEMATOCRIT 43.9 % (37.0-47.0); HGB - HEMOGLOBIN 13.1 g/dL (12.0-16.0); LYMPHOCYTES # (AUTO) 1.1 10^3/uL (1.5-3.5); LYMPHOCYTES % (AUTO) 15.9 %; MEAN CORPUSCULAR HEMOGLOBIN 29.2 pg (27.0-31.0); MEAN CORPUSCULAR HGB CONC 29.8 g/dL (32.0-36.0); MEAN PLATELET VOLUME 10.1 fL (7.9-10.8); MONOCYTES # (AUTO) 0.8 10^3/uL (0.0-1.0); MONOCYTES % (AUTO) 11.1 %; NEUTROPHILS # (AUTO) 4.8 10^3/uL (1.5-6.6); PLT - PLATELET COUNT 262 10^3/uL (130-450); RED BLOOD COUNT 4.48 10^6/uL (4.20-5.40); RED CELL DISTRIBUTION WIDTH 14.6 % (12.0-15.0); WHITE BLOOD COUNT 6.9 x10^3/uL (4.8-10.8)
[2022-11-27 05:34] LABS: CALCIUM 8.8 mg/dL (8.5-10.3); CREATININE 1.6 mg/dL (0.4-1.0); MAGNESIUM 1.9 mg/dL (1.7-2.8); POTASSIUM 3.8 mmol/L (3.5-5.0)
[2022-11-27] MEDS: FUROSEMIDE 20 MG/2 ML VIAL IVP SCH ×3 (05:34→14:47)
[2022-11-27] MEDS: ACETAMINOPHEN 325 MG TABLET PO PRN (06:59)
[2022-11-27] MEDS: BUDESONIDE 0.5 MG/2 ML NEB INH SCH (07:44)
[2022-11-27] MEDS: IPRATROPIUM/ALBUTEROL 3 ML NEB INH SCH (07:45)
[2022-11-27] MEDS: INSULIN LISPRO 300 UNIT/3 ML PEN SUBQ SCH ×2 (08:42→12:15)
[2022-11-27] MEDS: ASPIRIN CHEW 81 MG TABLET PO SCH (08:43)
[2022-11-27] MEDS: FENOFIBRATE 48 MG TABLET PO SCH (08:43)
[2022-11-27] MEDS: CLOPIDOGREL 75 MG TABLET PO SCH (08:43)
[2022-11-27] MEDS: LORATADINE 10 MG TABLET PO SCH (08:43)
[2022-11-27] MEDS: ENOXAPARIN 40 MG/0.4 ML SYRINGE SUBQ SCH (08:43)
[2022-11-27] MEDS: hydrALAZINE 25 MG TABLET PO SCH ×3 (08:44→12:22)
[2022-11-27] MEDS: OFLOXACIN 0.3% OPHTH DROPS EACHEYE SCH ×2 (08:52→12:22)
[2022-11-27] MEDS: LOSARTAN 50 MG TABLET PO SCH (09:00)
--- NOTE | 2022-11-27 11:20 | ADVANCE CARE PLANNING NOTE ---
Advance Care Planning - Planning Encounter Date: 11/27/22 Time: 11:20 Purpose: Establish care goals and discuss her request for DO NOT RESUSCITATE status Parties in Attendance: Hospitalist and patient Decisional Capacity of the Patient: Alert, oriented, lucid historian - Diagnosis for Encounter (1) New onset of congestive heart failure Summary: Found to have new congestive heart failure with this admission, has mild to moderate aortic stenosis - Encounter Subjective/Patient's Story: Patient is from [place]. 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 She has experience with watching people get older, and ultimately deteriorate with age and senescence. She feels like she has a very realistic understanding of what happens to us when we get older and . She has been living in her own home for the last 20 years. She and her bought property in both her home together. She has been taking care of him for the last 7 years when he initially got diagnosed with cancer. Then he started having cognitive deficits and it took 5 years for him to be diagnosed with vascular dementia. The last 2 years of been particularly difficult as he has not had problems with delusions, outburst of anger, and he needs 24/7 supervision. For a few years she would get a couple of days off. She would literally have friends or neighbors come stay with him and she would go stay in a hotel room. After about 3 years it was difficult to get that kind of help. And then she herself had an occipital stroke 2 years ago and she realized that a crisis was starting to form. If she could not take care of her , who could take care of him?. That is when she became formal DPOA over her . And then when she had her stroke she made sure that a DPOA was plan for on not only her but herself when she could not speak for her . That would be her son Dung who is at [phone]. The burden of being a caregiver on top of her own health needs has been almost overwhelming at times. She says that one of the reason she is decided to be DO NOT RESUSCITATE. Its been a long 7 years and she is "tired". She recognizes that she is speaking from of place of emotional fatigue but she feels like she is being realistic. As her body deteriorates and she can no longer take care of her she has decisions to make. She and her son have been discussing that maybe it is time for them to moved to [place] to be closer to him. They would have to sell the property here. On the one hand she recognizes the practicality of it, but her emotions make her want to delay this decision is much as possible. We now have added a new diagnosis of congestive heart failure for her. She has new oxygen requirements. It could be simply from emphysema with deterioration from an acute viral illness or it could be combination of COPD and mild congestive heart failure from aortic stenosis. She plans on educating herself about the aortic stenosis to see if she wants to do anything about it. Objective/Medical Story: This is a 67-year-old white female with a history of diabetes, stroke that gave her right sided hemianopia in 2020, history of femoropopliteal bypass, h ypertension, hyperlipidemia, hypertriglyceridemia, murmur of aortic stenosis and eczema. The patient was hospitalized here over New Year's of 2020 going into 2021 with that stroke. We had no senior engineering technician available to do the Echo to look for source of embolus or evaluate her aortic stenosis. It is not clear if the patient had that echo over 2021. An Echo was ordered by her PCP 1 month ago and it is scheduled to be done next month, Dec 2022. Patient came to the ER today complaining of shortness of breath and admits she ran out of her inhaler for over a week (she took Advair, Spiriva and Albuterol). She also has had a URI and a cough without sputum production, fatigue and red eyes with crusting of both eyes. She denied a fever, nausea, vomiting or diarrhea. She has not had any flu shots and any COVID shots. She does say that her shortness of breath has been developing over the past 6 to 8 weeks along with new pedal edema and orthopnea. (Presumably that is why the Echo was order ed by FRANCISCO Jacskon as an outpatient, and is still pending to be done in December). In the ER, the patient was found to have a glucose of 65 and admitted that she was "not eating anything for 2 days because she felt ill". She was given D10 and did start eating. She also had an O2 saturation of 80% on room air at presentation. Her chest x-ray showed CHF. Her first troponin is 53 (and the troponin machine then broke and will not be functional for 3 hours). The BNP and Resp panel are pending. She was put on supplemental oxygen, given a DuoNeb treatment and IV Lasix. She has already diuresed half a liter, per the ED provider. The EKG is similar to the one from 2 years ago. The ED provider reached out to me on the Hospitalist team and we discussed her case. The patient will be admitted for acute respiratory failure with hypoxia from CHF and COPD, and a probable viral syndrome causing her to be anorexic, which led to hypoglycemia in a diabetic. I asked her what her wishes are for CODE STATUS and she wants to be a DNR/DNI. She says she just made her son Dung Head her DPOA (his work number: [phone]). - Past Medical History Cardiovascular: reports: Hypertension, High cholesterol, Murmur Respiratory: reports: COPD, Shortness of breath Neuro: reports: CVA Endocrine/Autoimmune: reports: Type 2 diabetes Derm: reports: Other She has now been here for 2 days and has received Lasix twice daily IV. As well as inhaled nebulizers, inhaled long-acting bronchodilators. Echocardiogram shows mild to moderate aortic stenosis with an intact ejection fraction. Goals of Care: She would like to formalize DO NOT RESUSCITATE status with a POLST form She would like to have a conversation with her son about her goals of care because he is not aware of her DO NOT RESUSCITATE status nor is he aware of how fatigued she has become with caregiver burden. She thinks that she is going to begin exploring how to best handle her finances moving forward with possibly selling their property, house, and moving to [place] to be closer to their son Plan: As stated in goals of care. Today we filled out a POLST form. Code Status: Do Not Attempt Resuscitation Time spent on advance care plannin minutes
--- NOTE | 2022-11-27 11:24 | Discharge Plan ---
Discharge Plan Problem Reviewed?: Yes Disposition: Home, Self Care Condition: Stable Prescriptions: Ofloxacin 0.3% Ophth Drops [Ocuflox 0.3% Ophth Drops] 2 drops EACHEYE QID 4 Days #1 ea Montelukast [Singulair] 10 mg PO QPM #30 tab Diet: Cardiac Activity Restrictions: Activity as Tolerated Shower Restrictions: No Driving Restrictions: No Instruction Topics: Heart Valve Stenosis, Aortic Stenosis Tx Ch, TAVR Health Concerns: You presented to the emergency room because you were getting increasingly more tired, and it was difficult for you to do even simple things. You becoming more more short of breath with any exertion such as walking across the room or speaking. That started about 8 weeks ago. It was accompanied by cough, chest congestion. You have COPD but ran out of your inhalers a week before admission. On top of that you had an upper respiratory tract infection with runny nose, fatigue, red eyes, crusting of both eyes and phlegm production in the week prior to admission.. You have not had any flu or COVID shots. Your legs were starting to get swollen. 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 We found you to have exacerbation of your COPD. You were wheezing, had a low oxygen. We also wondered if you had new congestive heart failure and did an echocardiogram. You do have a history of a murmur and we found that you have aortic stenosis. It is mild to moderate. In essence, we think it is a combination of emphysema that was decompensated by common respiratory infection, combined with mild aortic stenosis congestive heart failure that may do have a low oxygen. Plan of Treatment: Please see your primary care provider in the next 1 to 2 weeks. I need your primary care provider to do: Refer you to cardiology to be evaluated for aortic stenosis and the timing of when the valve needs to be repaired Lab work in the form of a BNP and a BMP to make sure your electrolytes to congestive heart failure are stable -Examine you for your need for oxygen. We think that you need oxygen only temp orarily and once your lungs and heart improve you will be able to come off oxygen. I have started you on a new medication of Lasix. This is a diuretic. It will make you urinate more than usual but we are using it for probable congestive heart failure from your aortic stenosis. I do not think he will need this for very long. Please let PA, examine you on a regular basis to decide when you come off. Once your lungs and heart have stabilized you may be able to come off the Lasix, and you may be able to come off the oxygen. We also discussed advance care planning goals. We have filled out a POLST form and you are going home with the original document. We have a copy that we will put in your chart. You have lots to talk about with your son and which include: A POLST form for your and possibly transitioning to him to palliative care Formalizing your thought process with your son about advance care planning and your DO NOT RESUSCITATE status Probably moving forward to moving to [place] in the next couple of years Financial discussions with your son to help you decide how to move forward in the future Care Goals: You are very tired. 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 You need a break. I hope you find the help you need Assessment: Patient is alert, oriented, able to make her own decisions and communicates in a very logical, lucid fashion No Smoking: If you smoke, Please STOP! Call for help. Follow-up with: Char Jackson PA [Primary Care Provider] -
--- NOTE | 2022-11-27 11:42 | DISCHARGE SUMMARY ---
Discharge Summary Admit Date: 11/25/22 Discharge Date: 11/27/22 Discharging Provider: Adelaida Velazquez MD Primary Care Provider: FRANCISCO Reid Code Status: Do Not Attempt Resuscitation Condition at Discharge: Stable Discharge Disposition: 01 Home, Self Care - DIAGNOSES Discharge Diagnoses with Status of Each Condition: 1. Acute respiratory failure with hypoxia 2. COPD with exacerbation, secondary to #3 3. URI 4. New heart failure with preserved ejection fraction 5. Mild to moderate aortic stenosis 6. Conjunctivitis 7. Type 2 diabetes mellitus, controlled, with complications of neuropathy, on long-term insulin - HPI History of Present Illness: This is a 67-year-old white female with a history of diabetes, stroke that gave her right sided hemianopia in 2020, history of femoropopliteal bypass, hyper tension, hyperlipidemia, hypertriglyceridemia, murmur of aortic stenosis and eczema. The patient was hospitalized here over New Year's of 2020 going into 2021 with that stroke. We had no fire extinguisher technician available to do the Echo to look for source of embolus or evaluate her aortic stenosis. It is not clear if the patient had that echo over 2021. An Echo was ordered by her PCP 1 month ago and it is scheduled to be done next month, Dec 2022. Patient came to the ER today complaining of shortness of breath and admits she ran out of her inhaler for over a week (she took Advair, Spiriva and Albuterol). She also has had a URI and a cough without sputum production, fatigue and red eyes with crusting of both eyes. She denied a fever, nausea, vomiting or diarrhea. She has not had any flu shots and any COVID shots. She does say that her shortness of breath has been developing over the past 6 to 8 weeks along with new pedal edema and orthopnea. (Presumably that is why the Echo was ordered by FRANCISCO Jackson as an outpatient, and is still pending to be done in December). In the ER, the patient was found to have a glucose of 65 and admitted that she was "not eating anything for 2 days because she felt ill". She was given D10 and did start eating. She also had an O2 saturation of 80% on room air at presentation. Her chest x-ray showed CHF. Her first troponin is 53 (and the troponin machine then broke and will not be functional for 3 hours). The BNP and Resp panel are pending. She was put on supplemental oxygen, given a DuoNeb treatment and IV Lasix. She has already diuresed half a liter, per the ED provider. The EKG is similar to the one from 2 years ago. The ED provider reached out to me on the Hospitalist team and we discussed her case. The patient will be admitted for acute respiratory failure with hypoxia from CHF and COPD, and a probable viral syndrome causing her to be anorexic, which led to hypoglycemia in a diabetic. I asked her what her wishes are for CODE STATUS and she wants to be a DNR/DNI. She says she just made her son Dung Head her DPOA (his work number: [phone]). - Past Medical History Cardiovascular: reports: Hypertension, High cholesterol, Murmur Respiratory: reports: COPD, Shortness of breath Neuro: reports: CVA Endocrine/Autoimmune: reports: Type 2 diabetes Derm: reports: Other - Past Surgical History General: reports: Other Cardiovascular: reports: Fempop bypass - CONSULTS | PROCEDURES Procedures: Chest x-ray has mild interstitial edema, increased pulmonary markings. Small right pleural effusion. Left costophrenic angle is off the [id number]. Cannot exclude effusion there. Echocardiogram has left ventricle is normal. Mild concentric left ventricular hypertrophy. Ejection fraction is 55 to 60%. Right ventricle normal size and function. Mild to moderate aortic stenosis with a peak/mean gradient of 36 mmHg / 22 mmHg. Technically difficult study to do because of body habitus and cough. Grade 1 diastolic dysfunction. Increased left atrial pressures. Right ventricle normal in size and function. - HOSPITAL COURSE Hospital Course: She was treated on MedSurg as acute respiratory failure with hypoxia that we felt was from a combination of COPD with exacerbation (noncompliance with her inhalers) plus a new onset of congestive heart failure which has been developing for 6 to 8 weeks. Possibly from mild to moderate aortic stenosis. Troponins were flat and although elevated would not felt to be clinically significant of an NSTEMI . She responded to Lasix IV twice daily, low-salt diet, and telemetry did not show any tacky dysrhythmias. COPD exacerbation was felt to be from noncompliance with meds, and she received DuoNebs, Pulmicort and IV steroids. She had conjunctivitis that was treated with ofloxacin. We did evaluate her for possible viral illness and her PCR panel was negative for any viral infection. After adequate diuresis, treatment of her COPD, she was felt stable enough to return to home. She will need follow-up for her aortic stenosis. She says that she has become very fatalistic about life. She is only 67 but is very, very tired due to family circumstances. She really does not want a lot done to herself. But I encouraged her to get educated about aortic stenosis and decide if she would be candidate for treatment. Advance care planning conversation was held during the stay under separate dictation she wants to be DO NOT RESUSCITATE. Temperature is 36.4. Heart rate 85. Blood pressure 173/54 discharge. Not clear why because her blood pressure during the day was 133/42, 137/89. She is 93% saturated on 2 L nasal cannula.very pleasant alert vivacious street talking woman. Neck is supple without JVD. Coarse upper airway sounds and lungs, still slight scant wheezing but she feels great and wants to go home. No tachypnea or tachycardia. Irregular rate and rhythm with a systolic ejection murmur compatible with aortic stenosis. And abdomen that is obese, soft, nontender. She is ambulating in the room and does need oxygen. Greater than 30 minutes was spent corning discharge. She states that she had run out of medications and was waiting for the primary care office to send him to [facility]. The pharmacy says they have never received prescriptions. So I went ahead and refilled Advair. Not reimbursable by her insurance without was changed to Symbicort. I also refilled Spiriva Respimat. And I tried to refill Ventolin HFA inhaler but it is not reimbursed. And I change that to Ventolin nebulizer solution via her machine in addition to her nasal cannula oxygen. She is still hypoxic and requiring oxygen. But she feels as if she can safely go to home to do activities of daily living as long she is on supplemental oxygen. Room air on rest O2 sat is 77% with a heart rate of 92. She requires 2 L of oxygen at rest to have an O2 sat of 90. Ambulating on 2 L of nasal cannula oxygen resulted in an O2 sat of 86%. Ambulating with 3 L of oxygen resulted in O2 sat of 85%. She required 4 L of oxygen with ambulation to maintain O2 sats at 92%. She walked 200 feet with this. As such I am prescribing 2 L of nasal cannula oxygen at rest, and 4 L nasal cannula with ambulation. This document was made in part using voice recognition software. While efforts are made to proofread this document, sound alike and grammatical errors may occur. - ALLERGIES Allergies/Adverse Reactions: Allergies Allergy/AdvReac Type Severity Reaction Status Date / Time lisinopril AdvReac Mild Respiratory Verified 11/25/22 16:25 - MEDICATIONS Home Medications: Ambulatory Orders Medication Instructions Recorded Confirmed Fexofenadine HCl [Jessica Allergy] 180 mg PO DAILY 10/19/19 11/25/22 Insulin Lispro [Humalog Kwikpen 30 unit SUBQ QID 10/19/19 11/25/22 U-100] Insulin NPH Human Isophane 29 - 46 unit SUBQ BID 10/19/19 11/25/22 [Humulin N] Aspirin Chewable [[place] 81 mg PO DAILY #30 tablet 09/11/21 11/25/22 Aspirin] Clopidogrel [Plavix] 75 mg PO DAILY #30 tablet 09/11/21 11/25/22 Fenofibrate Nanocrystallized 48 mg PO DAILY #30 tablet 09/11/21 11/25/22 [Fenofibrate] Hydralazine HCl 1 tab PO QID 11/25/22 11/25/22 Losartan [Cozaar] 1 tab PO BID 11/25/22 11/25/22 NIFEdipine [Procardia Xl] 1 tab PO DAILY 11/25/22 11/25/22 Pregabalin [Lyrica] 1 cap ORAL QPM 11/25/22 11/25/22 Albuterol 2.5 mg INH Q4H PRN #30 ml 11/27/22 Budesonide/Formoterol Fumarate 10.2 gm IH BID #1 gm 11/27/22 [Symbicort 160-4.5 Mcg Inhaler] Furosemide [Lasix] 20 mg PO BID #60 tablet 11/27/22 Montelukast [Singulair] 10 mg PO QPM #30 tab 11/27/22 Ofloxacin 0.3% Ophth Drops 2 drops EACHEYE QID 4 Days #1 ea 11/27/22 [Ocuflox 0.3% Ophth Drops] Tiotropium [place] [Spiriva 4 gm IH DAILY #1 ml 11/27/22 Respimat] - LABS Result Diagrams: 11/27/22 04:56 11/27/22 04:56
[2022-11-27] MEDS: NIFEdipine ER 30 MG TABLET PO SCH (12:22)
[2022-11-27 15:12] VITALS: BP 173/54
== END 2022-11-27 15:45 | disposition home or self-care (01) | DRG 189 ==
LOC: ED 10:00 → MS2 14:47
PROVIDERS: ADMIT Internal Medicine; ATTEND Specialist
DX: J96.01 Acute respiratory failure with hypoxia (principal); I50.9 Heart failure, unspecified; E11.9 Type 2 diabetes mellitus without complications; I50.30 Unspecified diastolic (congestive) heart failure; R09.02 Hypoxemia; J44.9 Chronic obstructive pulmonary disease, unspecified; J90 Pleural effusion, not elsewhere classified; Z20.822 Contact with and (suspected) exposure to COVID-19; R53.1 Weakness; T50.996A Underdosing of other drugs, medicaments and biological substances, initial encounter; J43.9 Emphysema, unspecified; R63.0 Anorexia; Z68.36 Body mass index [BMI] 36.0-36.9, adult; J06.9 Acute upper respiratory infection, unspecified; I11.0 Hypertensive heart disease with heart failure; E11.649 Type 2 diabetes mellitus with hypoglycemia without coma; E11.40 Type 2 diabetes mellitus with diabetic neuropathy, unspecified; I35.0 Nonrheumatic aortic (valve) stenosis; H10.9 Unspecified conjunctivitis; H53.47 Heteronymous bilateral field defects; E78.5 Hyperlipidemia, unspecified; E78.1 Pure hyperglyceridemia; Z66 Do not resuscitate; T48.6X6A Underdosing of antiasthmatics, initial encounter; E11.51 Type 2 diabetes mellitus with diabetic peripheral angiopathy without gangrene; I69.398 Other sequelae of cerebral infarction; Z28.310 Unvaccinated for COVID-19; Z91.14 Patient's other noncompliance with medication regimen; Z91.128 Patient's intentional underdosing of medication regimen for other reason; Z79.4 Long term (current) use of insulin; Z28.89 Immunization not carried out for other reason
CPT/HCPCS: 36415; 71045; 80048; 80053; 83036; 83690; 83735; 83880; 84484; 85025; 87633; 93005; 93306; 94640; 94761; 96365; 96375; 99285; A9270; J1650; J3490; J7626

== ENCOUNTER 2022-12-16 08:43 | Outpatient (CLI) | payer MEDICARE ==
[2022-12-16 09:13] LABS: CALCIUM 8.9 mg/dL (8.5-10.3); CREATININE 1.5 mg/dL (0.4-1.0)
== END 2022-12-16 08:44 | disposition home or self-care (01) ==
LOC: LAB 08:43
PROVIDERS: ATTEND Physician Assistant
DX: N18.30 Chronic kidney disease, stage 3 unspecified (principal); R01.1 Cardiac murmur, unspecified; I65.29 Occlusion and stenosis of unspecified carotid artery
CPT/HCPCS: 36415; 80048; 83880

== ENCOUNTER 2023-07-25 09:44 | Outpatient (CLI) | payer MEDICARE ==
--- NOTE | 2023-07-25 13:02 | Ultrasound Report ---
PROCEDURE: Pelvic w/Transvaginal INDICATIONS: POSTMENOPAUSAL BLEEDING TECHNIQUE: Real-time scanning was performed of the pelvic organs, with image documentation. Additional endovagi nal scanning was necessary due to incomplete visualization of the adnexal and endometrial structures by transabdominal scanning. COMPARISON: None. FINDINGS: Uterus: Uterus is anteverted and normal in size at 4.8 x 4.6 x 3.1 cm. The myometrium is homogen eous. The endometrium measures 5 mm. However, there is a area involving the lower uterine segment/ce rvix region where the endometrium has cystic change and is thickened at 1.5 x 1.2 x 0.8 cm. Ovaries: The right ovary measures 2.0 x 1.2 x 1.1 cm, with a calculated ovarian volume of 1.38 cc. The left ovary measures 1.2 x 1.0 x 0.8 cm, with a calculated ovarian volume of 0.52 cc. The ovaries have a normal sonographic appearance. Greater than 12 follicles can be seen in each ovary. No adne xal masses are seen. No cystic lesions measuring greater than 3 cm. There is a small 5 mm hyperechoic focus within the right ovary which may represent a tiny dermoid. Other: No pathologic free abdominal or pelvic fluid. IMPRESSION: 1. Focal thickening and cystic change within the endometrium in the lower uterine segment measuring 1 .5 cm in maximal dimension with cystic change. Given the imaging findings of further evaluation clini rossy indicated an endometrial biopsy may be of further clinical value. 2. Tiny probable 5 mm dermoid right ovary. 3. Greater than 12 follicles in each ovary. Reviewed by: Juliano Briones MD on 07/25/2023 1:00 PM [facility] Approved by: Juliano Briones MD on 07/25/2023 1:00 PM PST Station ID: [id number]
== END 2023-07-25 09:45 | disposition home or self-care (01) ==
LOC: DI 09:44
PROVIDERS: ATTEND Physician Assistant
DX: N85.8 Other specified noninflammatory disorders of uterus (principal); N95.0 Postmenopausal bleeding

== ENCOUNTER 2024-03-10 10:00 | Outpatient (CLI) | payer MEDICARE ==
[2024-03-11 08:13] LABS: FECAL OCCULT BLOOD (FIT) POSITIVE (NEGATIVE)
== END 2024-03-10 10:01 | disposition home or self-care (01) ==
LOC: LAB.R 10:00
PROVIDERS: ATTEND Physician Assistant
DX: Z12.11 Encounter for screening for malignant neoplasm of colon (principal)
CPT/HCPCS: 82274

== ENCOUNTER 2024-03-11 07:16 | Outpatient (CLI) | payer MEDICARE ==
[2024-03-11 07:33] LABS: BILIRUBIN,URINE NEGATIVE (NEGATIVE); GLUCOSE, URINE (UA) >=1000 mg/dL (NEGATIVE); KETONES,URINE (UA) NEGATIVE (NEGATIVE); LEUKOCYTE ESTERASE, URINE SMALL (NEGATIVE); NITRITE,URINE NEGATIVE (NEGATIVE); OCCULT BLOOD,URINE TRACE-INTA (NEGATIVE); PROTEIN,URINE 30 mg/dL (NEGATIVE); UROBILINOGEN,URINE 0.2 (NORMAL) E.U./dL (NORMAL)
[2024-03-11 07:42] LABS: BASOPHILS # (AUTO) 0.1 10^3/uL (0.0-0.1); BASOPHILS % (AUTO) 0.6 %; EOSINOPHILS # (AUTO) 0.2 10^3/uL (0.0-0.7); HCT - HEMATOCRIT 41.8 % (37.0-47.0); LYMPHOCYTES # (AUTO) 2.3 10^3/uL (1.5-3.5); MEAN CORPUSCULAR HEMOGLOBIN 27.8 pg (27.0-31.0); MEAN CORPUSCULAR HGB CONC 31.1 g/dL (32.0-36.0); MEAN CORPUSCULAR VOLUME 89.5 fL (81.0-99.0); MEAN PLATELET VOLUME 8.9 fL (7.9-10.8); MONOCYTES # (AUTO) 0.8 10^3/uL (0.0-1.0); MONOCYTES % (AUTO) 7.9 %; NEUTROPHILS # (AUTO) 6.3 10^3/uL (1.5-6.6); NEUTROPHILS % (AUTO) 65.1 %; PLT - PLATELET COUNT 323 10^3/uL (130-450); RED BLOOD COUNT 4.67 10^6/uL (4.20-5.40); RED CELL DISTRIBUTION WIDTH 13.6 % (12.0-15.0); WHITE BLOOD COUNT 9.7 x10^3/uL (4.8-10.8)
[2024-03-11 07:51] LABS: ALBUMIN 3.8 g/dL (3.2-5.5); ALBUMIN/GLOBULIN RATIO 1.2 (1.0-2.2); ALKALINE PHOSPHATASE 69 IU/L (42-121); ALT ALANINE AMINOTRANSFERASE 14 IU/L (10-60); AST ASPARTATE AMINOTRANSFERASE 15 IU/L (10-42); BILIRUBIN,TOTAL 0.6 mg/dL (0.2-1.0); BUN - BLOOD UREA NITROGEN 21 mg/dL (6-20); CALCIUM 9.5 mg/dL (8.5-10.3); CARBON DIOXIDE - CO2 29 mmol/L (21-32); CHLORIDE 101 mmol/L (101-111); CHOL/HDL RATIO 5.3 (<4.4); CHOLESTEROL 228 mg/dL; CREATININE 1.6 mg/dL (0.6-1.3); GFR - MDRD 32 (>89); GLUCOSE 158 mg/dL (74-104); HDL CHOLESTEROL 43 mg/dL; LDL CHOLESTEROL,CALCULATED 126 mg/dL; LDL/HDL RATIO 2.9 (<4.4); POTASSIUM 4.2 mmol/L (3.5-4.5); SODIUM 136 mmol/L (135-145); TOTAL PROTEIN 7.1 g/dL (6.4-8.9); TRIGLYCERIDES 294 mg/dL (48-352); VLDL CHOLESTEROL 59 mg/dL
[2024-03-11 07:52] LABS: BACTERIA,URINE Rare /HPF (None Seen); CLARITY,URINE SL. CLOUDY (CLEAR); SQUAMOUS EPITHELIAL CELL,UR RARE Squamous (<= Few); WBC,URINE >25 /HPF (0-5)
[2024-03-11 08:03] LABS: CA 125 10.6 U/mL (0.5-35.0)
[2024-03-11 11:32] LABS: ESTIMATED AVERAGE GLUCOSE 120 mg/dL (70-100); HEMOGLOBIN A1c% 5.8 % (4.27-6.07)
== END 2024-03-11 07:17 | disposition home or self-care (01) ==
LOC: LAB 07:16
PROVIDERS: ATTEND Physician Assistant
DX: E11.22 Type 2 diabetes mellitus with diabetic chronic kidney disease (principal); N18.30 Chronic kidney disease, stage 3 unspecified; R30.0 Dysuria; N95.0 Postmenopausal bleeding; N85.9 Noninflammatory disorder of uterus, unspecified
CPT/HCPCS: 36415; 80053; 80061; 81001; 83036; 83721; 85025; 86304; 87086

== ENCOUNTER 2024-06-06 12:34 | Outpatient (CLI) | payer MEDICARE ==
--- NOTE | 2024-06-06 21:15 | Ultrasound Report ---
PROCEDURE: Carotid Doppler Complete INDICATIONS: CAROTID ARTERY STENOSIS TECHNIQUE: Color and pulse Doppler interrogation was performed of both carotid systems, with image documentation and velocity measurements. COMPARISON: None. FINDINGS: Right side: Brachial blood pressure: 151/55 mm Hg. Common carotid artery peak systolic velocity: 40 cm/sec. Internal carotid artery peak systolic velocity: 134 cm/sec. Internal carotid artery end diastolic velocity: 37 cm/sec. External carotid artery peak systolic velocity: 75 cm/sec. ICA/CCA peak systolic ratio: 3.35 . Kam scale imaging description: Large amount of atherosclerotic plaques are noted in distal right co mmon carotid arteries and involving proximal internal and external carotid arteries. Percent internal carotid artery stenosis: 50-69 percent stenosis. Vertebral artery: Flow direction is antegrade. Left side: Brachial blood pressure: 159/51 mm Hg. Common carotid artery peak systolic velocity: 59 cm/sec. Internal carotid artery peak systolic velocity: 114 cm/sec. Internal carotid artery end diastolic velocity: 37 cm/sec. External carotid artery peak systolic velocity: 167 cm/sec. ICA/CCA peak systolic ratio: 1.9 . Kam scale imaging description: Moderate atherosclerotic plaque. Percent internal carotid artery stenosis: Less than 50 percent stenosis. Vertebral artery: Flow direction is antegrade. IMPRESSION: 1. In the right internal carotid artery, there is 50-69 percent stenosis based on peak systolic veloc ity criteria. 2. In the left internal carotid artery, there is less than 50 percent stenosis based on peak systolic velocity criteria. 3. Antegrade blood flow within the right vertebral artery. 4. Antegrade blood flow within the left vertebral artery. The estimate of stenosis included in the report of the imaging study was calculated using the [facility]-end orsed standards of carotid artery stenosis. Reviewed by: Erick Smith MD on 06/06/2024 9:14 PM PDT Approved by: Erick Smith MD on 06/06/2024 9:14 PM PDT Station ID: [id number]
== END 2024-06-06 12:35 | disposition home or self-care (01) ==
LOC: DI 12:34
PROVIDERS: ATTEND Internal Medicine Cardiovascular Disease
DX: I65.23 Occlusion and stenosis of bilateral carotid arteries (principal); I50.32 Chronic diastolic (congestive) heart failure; I35.0 Nonrheumatic aortic (valve) stenosis
CPT/HCPCS: 93880